=== PATIENT | female | born 1955 | race Caucasian/White ===

== ENCOUNTER → 2017-12-13 13:20 | Outpatient (CLI) | payer BC, SELFPAY | PROVIDERS: PCP Family Medicine; Visit Provider Family Medicine | DX: M81.0 Age-related osteoporosis without current pathological fracture (principal); Z78.0 Asymptomatic menopausal state; Z82.62 Family history of osteoporosis; Z87.891 Personal history of nicotine dependence | CPT/HCPCS: 77080 ==

== ENCOUNTER → 2018-08-04 12:44 | Outpatient (CLI) | payer BC, SELFPAY ==
--- NOTE | 2018-08-04 | DI.RAD.S_ITS ---
PROCEDURE: FL BARIUM SWALLOW INDICATIONS: DYSPHAGIA COMPARISON: None. FINDINGS: Function: Mildly decreased esophageal peristalsis. No elicited gastroesophageal reflux. Morphology: Air-contrast images demonstrate normal mucosal morphology. Single contrast views show no esophageal strictures, extrinsic mass effects, or diverticula. Limited images of the stomach demonstrate normal appearance. IMPRESSION: Mild esophageal dysmotility. Dictated by: Tristan Hale M.D. on 08/04/2018 at 14:30 Approved by: Tristan Hale M.D. on 08/04/2018 at 14:31
== END ==
PROVIDERS: PCP Family Medicine; Visit Provider Otolaryngology
DX: K22.4 Dyskinesia of esophagus (principal); R13.10 Dysphagia, unspecified
CPT/HCPCS: 74220

== ENCOUNTER → 2018-10-13 10:55 | Outpatient (CLI) | payer BC, SELFPAY ==
--- NOTE | 2018-10-13 | DI.MG.S_ITS ---
BILATERAL DIGITAL SCREENING MAMMOGRAM 3D/2D WITH CAD: 10/13/2018 CLINICAL: Routine screening. Comparison is made to exams dated: 06/03/2017 mammogram, 05/20/2016 mammogram, and 05/06/2015 mammogram - [facility]. The tissue of both breasts is heterogeneously dense. This may lower the sensitivity of mammography. Current study was also evaluated with a Computer Aided Detection (CAD) system. There are benign calcifications in the left breast. No significant masses, calcifications, or other findings are seen in either breast. There has been no significant interval change. IMPRESSION: There is no mammographic evidence of malignancy. A 1 year screening mammogram is recommended. This exam was interpreted at Station ID: [id number]. NOTE: For mammograms, a report in lay terms will be sent to the patient. Approximately 15% of breast malignancies will not be visualized mammographically. In the management of a palpable breast mass, a negative mammogram must not discourage biopsy of a clinically suspicious lesion. Electronically Signed By: Josias muse/arjun:10/13/2018 11:45:18 letter sent: Normal Exam ACR BI-RADS Category 2: Benign Finding(s) 3342F
== END ==
PROVIDERS: PCP Family Medicine; Visit Provider Family Medicine
DX: Z12.31 Encounter for screening mammogram for malignant neoplasm of breast (principal)
CPT/HCPCS: 77063; 77067

== ENCOUNTER → 2019-03-09 10:47 | Outpatient (CLI) | payer BC, SELFPAY | PROVIDERS: PCP Family Medicine; Visit Provider Family Medicine | DX: R20.2 Paresthesia of skin (principal); M54.2 Cervicalgia | CPT/HCPCS: 95885; 95886; 95911 ==

== ENCOUNTER → 2019-03-10 15:11 | Outpatient (CLI) | payer BC, SELFPAY ==
--- NOTE | 2019-03-10 | DI.RAD.S_ITS ---
PROCEDURE: XR CERVICAL SPINE 2V OR 3V INDICATIONS: BI HAND TINGLING/ NECK PAIN TECHNIQUE: 3 view(s) of the cervical spine were acquired. COMPARISON: [facility], CERVICAL SPINE 2 OR 3 VIEWS, 04/05/2013, 14:29. FINDINGS: Bones: No fractures or dislocations to the C6 level. The lateral masses of C1 appear intact on the odontoid view. No suspicious bony lesions. Multilevel degenerative endplate sclerosis and spurring. Diffuse facet arthropathy. Straightening of the normal lordotic curvature. Moderate to severe narrowing of the C4-C5 disc space. Moderate narrowing of the C5-C6 disc space. Mild levocurvature. Soft tissues: No prevertebral soft tissue swelling. IMPRESSION: Midcervical spondylosis and diffuse facet arthropathy, progressed since 04/05/13. Dictated by: Tristan Hale M.D. on 03/10/2019 at 16:47 Approved by: Tristan Hale M.D. on 03/10/2019 at 16:49
== END ==
PROVIDERS: PCP Family Medicine; Visit Provider Family Medicine
DX: R20.2 Paresthesia of skin (principal); M54.2 Cervicalgia; M47.812 Spondylosis without myelopathy or radiculopathy, cervical region
CPT/HCPCS: 72040

== ENCOUNTER → 2019-11-04 10:43 | Outpatient (CLI) | payer BC, SELFPAY ==
--- NOTE | 2019-11-04 | DI.MG.S_ITS ---
BILATERAL DIGITAL SCREENING MAMMOGRAM 3D/2D WITH CAD: 11/04/2019 CLINICAL: Routine screening. Comparison is made to exams dated: 10/13/2018 mammogram, 06/03/2017 mammogram, and 05/20/2016 mammogram - [facility]. The tissue of both breasts is heterogeneously dense. This may lower the sensitivity of mammography. Current study was also evaluated with a Computer Aided Detection (CAD) system. There are benign calcifications in the left breast. No significant masses, calcifications, or other findings are seen in either breast. There has been no significant interval change. IMPRESSION: There is no mammographic evidence of malignancy. A 1 year screening mammogram is recommended. This exam was interpreted at Station ID: [id number]. NOTE: For mammograms, a report in lay terms will be sent to the patient. Approximately 15% of breast malignancies will not be visualized mammographically. In the management of a palpable breast mass, a negative mammogram must not discourage biopsy of a clinically suspicious lesion. Electronically Signed By: Josias muse/arjun:11/06/2019 07:37:12 letter sent: Normal Exam ACR BI-RADS Category 2: Benign Finding(s) 3342F
== END ==
PROVIDERS: PCP Family Medicine; Referring Provider Family Medicine; Visit Provider Family Medicine
DX: Z12.31 Encounter for screening mammogram for malignant neoplasm of breast (principal)
CPT/HCPCS: 77063; 77067

== ENCOUNTER → 2019-12-06 13:08 | Outpatient (CLI) | payer BC, SELFPAY | PROVIDERS: PCP Family Medicine; Referring Provider Family Medicine; Visit Provider Family Medicine | DX: M81.0 Age-related osteoporosis without current pathological fracture (principal); Z78.0 Asymptomatic menopausal state; Z82.62 Family history of osteoporosis; Z87.891 Personal history of nicotine dependence | CPT/HCPCS: 77080 ==

== ENCOUNTER → 2019-12-25 10:22 | Outpatient (CLI) | payer BC, SELFPAY ==
[2019-12-26 07:23] LABS: COVID19 Sendout Not Detected (Not Detect)
== END ==
PROVIDERS: PCP Family Medicine; Visit Provider Physician Assistant
DX: Z11.59 Encounter for screening for other viral diseases (principal)
CPT/HCPCS: 87635

== ENCOUNTER → 2019-12-28 14:51 | Outpatient (CLI) | payer BC, SELFPAY ==
--- NOTE | 2020-01-05 08:37 | PM.PFT.1 ---
Pulmonary Function Test Referral & Results Date Patient Seen: 12/28/19 Requesting provider: Dina Berrios Indication: Dyspnea upon exertion Results: The spirometry demonstrates an FVC of 3.20 L which is 104% of predicted. The FEV1 was measured at 2.54 L which is 108% of predicted. The FEV1/FVC ratio was 79 which is 102% of predicted. Following the administration of bronchodilator there was no notable change. Lung volumes show an SVC of 3.35 L which is 116% of predicted. The diffusing capacity was measured at 18.9 for which is 82% of predicted. The maximum voluntary ventilation was slightly reduced Interpretation: This study demonstrates probably normal pulmonary function. Minimal reduction in diffusing capacity and maximum voluntary ventilation were noted.
== END ==
PROVIDERS: PCP Family Medicine; Referring Provider Family Medicine; Visit Provider Family Medicine
DX: R06.09 Other forms of dyspnea (principal); Z87.891 Personal history of nicotine dependence
CPT/HCPCS: 94060; 94726; 94729

== ENCOUNTER → 2020-01-30 07:00 | Outpatient (CLI) | payer BC, SELFPAY ==
--- NOTE | 2020-01-30 07:14 | DI.ECHO.S_ITS ---
Echocardiogram Report + + :Name: RONAN JENKINS Study Date: 01/30/2020 Height: 63 in : :[facility] Weight: 138 lb : : Gender: Female BSA: 1.6 m2 : :: 1955 Age: 64 yrs BP: 142/71 mmHg: :Reason For Study: CARDIAC MURMUR : :Ordering Physician: Dr. Arroyo : :Yash Performed By: Doretha Mishra : :Referring: RONAN NEW : + + Interpretation Summary Sinus bradycardia. Heart rate is 45-55 bpm. Normal LV size and walll thickness; normal wall motion and LV systolic function. EF is 60-65%. Normal chamber sizes. No significatn valvular abnormalities. There is evidence of patent foramen ovale based on color flow Doppler. No prior study available for comparison. Procedure: A two-dimensional transthoracic echocardiogram with color flow and Doppler was performed. The study quality was technically adequate. There is no prior echocardiogram noted for this patient. The patient was in sinus bradycardia with heart rates between 45-55 bpm during the exam. Left Ventricle: The left ventricle is normal in size and wall thickness. The ejection fraction is estimated to be 60-65%. Diastolic parameters suggest probable normal left ventricular diastolic function and normal filling pressures. Right Ventricle: The right ventricle is normal in size and function. Atria: The left atrial size is normal. Right atrial size is normal. A patent foramen ovale is suspected. Doppler evidence suggests a left to right interatrial shunt. Mitral Valve: The mitral valve is normal in structure and function. There is trace mitral regurgitation. Aortic Valve: The aortic valve is trileaflet. The aortic valve opens well. There is no aortic valve stenosis. No aortic regurgitation is present. Tricuspid Valve: The tricuspid valve is normal in structure and function. Pulmonary artery pressures cannot be estimated because of the lack of a measurable TR jet velocity but the IVC suggests a CVP of around 8 mmHg. Pulmonic Valve: The pulmonic valve leaflets are thin and pliable; valve motion is normal. There is mild pulmonic regurgitation. Great Vessels: The aortic root is normal size. The dimensions of the ascending aorta are normal. The IVC is dilated (diameter is greater than 2.1 cm) yet it collapses greater than 50% with a sniff. This suggests a right atrial pressure of 8 mm Hg. Pericardium/ Pleura There is no pericardial effusion. There is no pleural effusion. MMode/2D Measurements & Calculations LVIDd: 4.5 cm LVOT diam: 1.9 cm LVIDs: 2.9 cm Ao root diam: 2.7 cm FS: 35.7 % asc Aorta Diam: 2.5 cm EPSS: 0.56 cm Ao Arch Diam (Prox Trans): 2.4 cm IVSd: 0.64 cm LVPWd: 0.77 cm LV machado. diameter/BSA (cm/m^2): 2.7 LV sys. diameter/BSA (cm/m^2): 1.7 LA A2 area: 14.6 cm2 RA long axis: 4.4 cm LA A4 area: 15.5 cm2 RA area: 13.8 cm2 LA length (vol): 4.6 cm RA vol: 36.3 ml LA vol: 41.4 ml RA : 22.0 ml/m2 LA vol index: 25.1 ml/m2 IVC diam: 2.2 cm RVD1 (basal): 3.6 cm TAPSE: 2.3 cm Doppler Measurements & Calculations Ao V2 max: 125.6 cm/sec MV E max deny: 85.8 cm/sec Ao V2 mean: 82.0 cm/sec MV A max deny: 54.5 cm/sec Ao max P.3 mmHg MV E/A: 1.6 Ao mean P.1 mmHg Med Peak E' Deyn: 7.8 cm/sec Ao V2 VTI: 29.6 cm E/E' med: 11.0 Lat Peak E' Deny: 8.4 cm/sec E/E' lat: 10.2 E/e' average: 10.6 MV dec time: 0.17 sec Electronically signed by: Lata Neil M.D. on Reading Physician:01/31/2020 01:18 AM
== END ==
PROVIDERS: PCP Family Medicine; Referring Provider Family Medicine; Visit Provider Family Medicine
DX: I37.1 Nonrheumatic pulmonary valve insufficiency (principal); R01.1 Cardiac murmur, unspecified; R06.09 Other forms of dyspnea
CPT/HCPCS: 93306

== ENCOUNTER → 2020-02-14 12:00 | Outpatient (CLI) | payer BC, SELFPAY ==
--- NOTE | 2020-03-15 16:49 | PM.CARDMON.1 ---
Health Informatics Advisor Report Referral & Results Date Patient Seen: 02/14/20 Requesting provider: Dina Berrios Indication: Palpitations Duration of monitoring (days): 14 Diary information: There were 16 patient triggered events and patient had 10 diary entries All 16 of these events were associated variably (within 45 seconds) with sinus rhythm, ventricular bigeminy, PVCs, and PACs. Data: Patient's minimum heart rate was 37 beats per minute at 06:30 on 02/19/2020 Maximum heart rate was 140 beats per minute at 13:05 on 02/27/2020 Less than 1% of identified beats rather ventricular supraventricular ectopic in origin. Patient did have up to a 1 minutes 42nd run of ventricular bigeminy There were 3 runs of SVT/atrial tachycardia with the fastest being 5 beats at a rate of 103 beats per minute which suggests strongly atrial tachycardia rather than true SVT. This was also the longest run No other significant dysrhythmias identified Impression: Patient with multiple minor dysrhythmias as above that potentially could be associated with sense of palpitations including PACs and PVCs. No more serious dysrhythmia identified on this study
== END ==
PROVIDERS: Family Provider Family Medicine; PCP Family Medicine; Referring Provider Family Medicine; Visit Provider Family Medicine
DX: R00.2 Palpitations (principal)
CPT/HCPCS: 0296T; 0298T

== ENCOUNTER → 2020-07-08 10:09 | Outpatient (CLI) | payer MEDICARE, BC, SELFPAY ==
--- NOTE | 2020-07-08 | DI.RAD.S_ITS ---
PROCEDURE: XR KNEE LT 3V INDICATIONS: LEFT KNEE PAIN TECHNIQUE: 3 views of the knee were acquired. COMPARISON: [facility], , KNEE 3V LEFT, 11/08/2014, 11:07. FINDINGS: Bones: No fractures or dislocations. No suspicious bony lesions. Mild narrowing of the lateral facet of the patellofemoral joint Soft tissues: No joint effusion. No suspicious soft tissue calcifications. IMPRESSION: Mild degenerative osteoarthritic change at the lateral facet of the patellofemoral joint. No trauma found. Dictated by: Chuck Lopez M.D. on 07/08/2020 at 10:47 Approved by: Chuck Lopez M.D. on 07/08/2020 at 10:48
== END ==
PROVIDERS: Family Provider Family Medicine; PCP Family Medicine; Referring Provider Family Medicine; Visit Provider Family Medicine
DX: M25.562 Pain in left knee (principal)
CPT/HCPCS: 73562

== ENCOUNTER → 2020-11-05 | Outpatient (CLI) | payer MEDICARE, BC, SELFPAY ==
--- NOTE | 2020-11-05 | DI.MG.S_ITS ---
BILATERAL DIGITAL SCREENING MAMMOGRAM 3D/2D WITH CAD: 11/05/2020 CLINICAL: Routine screening. Comparison is made to exams dated: 11/04/2019 mammogram, 10/13/2018 mammogram, and 06/03/2017 mammogram - [facility]. The tissue of both breasts is heterogeneously dense. This may lower the sensitivity of mammography. Current study was also evaluated with a Computer Aided Detection (CAD) system. There are benign calcifications in the left breast. No significant masses, calcifications, or other findings are seen in either breast. There has been no significant interval change. IMPRESSION: BENIGN There is no mammographic evidence of malignancy. A 1 year screening mammogram is recommended. This exam was interpreted at Station ID: [id number]. NOTE: For mammograms, a report in lay terms will be sent to the patient. Approximately 15% of breast malignancies will not be visualized mammographically. In the management of a palpable breast mass, a negative mammogram must not discourage biopsy of a clinically suspicious lesion. Electronically Signed By: Vipin chacon/arjun:11/05/2020 15:13:43 letter sent: Normal Exam ACR BI-RADS Category 2: Benign Finding(s) 3342F
== END ==
LOC: MAMMO 14:02
PROVIDERS: Family Provider Family Medicine; PCP Family Medicine; Referring Provider Family Medicine; Visit Provider Family Medicine
DX: Z12.31 Encounter for screening mammogram for malignant neoplasm of breast (principal)
CPT/HCPCS: 77063; 77067

== ENCOUNTER → 2020-12-30 13:15 | Outpatient (CLI) | payer MEDICARE, BC, SELFPAY ==
[2020-12-30 15:31] LABS: COVID19 -Nasal RAPID Negative (Negative)
== END ==
PROVIDERS: Family Provider Family Medicine; PCP Family Medicine; Referring Provider Physician Assistant; Visit Provider Physician Assistant
DX: J02.9 Acute pharyngitis, unspecified (principal); Z20.822 Contact with and (suspected) exposure to COVID-19
CPT/HCPCS: 87635

== ENCOUNTER → 2021-02-04 11:06 | Outpatient (CLI) | payer MEDICARE, BC, SELFPAY ==
--- NOTE | 2021-02-04 11:08 | DI.RAD.S_ITS ---
PROCEDURE: XR LUMBAR SPINE MIN 4V INDICATIONS: Low back pain left lower extremity pain TECHNIQUE: 5 views of the lumbar spine were acquired, including bilateral oblique views. COMPARISON: [facility], , L-SPINE 2-3 VIEWS, 08/08/2015, 12:33. FINDINGS: Bones: 5 nonrib-bearing vertebrae are present. There is normal bony alignment. No vertebral body compression fractures. No suspicious bony lesions. Disc space narrowing and degenerative endplate changes noted at L2-3 and L5-S1. Sclerotic facet joints present in the lower lumbar spine. Soft tissues: Overlying bowel gas pattern is normal. No suspicious soft tissue calcifications. Oblique images: No pars defects. IMPRESSION: Multilevel degenerative disc disease and arthropathy without malalignment Approved by: Ervin Shell M.D. on 02/04/2021 at 10:35
== END ==
PROVIDERS: Family Provider Family Medicine; PCP Family Medicine; Referring Provider Physical Medicine & Rehabilitation; Visit Provider Physical Medicine & Rehabilitation
DX: M54.16 Radiculopathy, lumbar region (principal); M51.36 Other intervertebral disc degeneration, lumbar region; M47.816 Spondylosis without myelopathy or radiculopathy, lumbar region
CPT/HCPCS: 72110

== ENCOUNTER → 2021-02-14 13:35 | Outpatient (CLI) | payer MEDICARE, BC, SELFPAY ==
--- NOTE | 2021-02-14 13:37 | DI.MRI.S_ITS ---
PROCEDURE: MR LUMBAR SPINE WO CON INDICATIONS: Facet arthropathy with left lower extremity radicular features TECHNIQUE: Noncontrast sagittal T1 spin echo and T2 fast echo, sagittal STIR, axial T1 and T2 fast spin echo through the lumbar spine. In cases with scoliosis, additional coronal T2 fast spin echo may be performed. COMPARISON: [facility], CR, XR LUMBAR SPINE MIN 4V, 02/04/2021, 11:04. FINDINGS: Image quality: Excellent. Alignment and Curvature: There is normal bony alignment. Bone Marrow: Marrow is of normal overall signal. Mild reactive endplate changes are present at L2-3, L3-4, minimal throughout the remainder of the lumbar spine. Schmorl's nodes are present most prominently along the endplates of L2 L3 and L5. No acute vertebral body compression fractures. Spinal Cord: Conus medullaris terminates at the L2 level. Visualized cord demonstrates normal signal and size. Paraspinous Soft Tissues: No paravertebral masses. Discs: Moderate to severe desiccation is present throughout the lumbar spine most severe at L2-3, L3-4 and L5-S1. L1-L2: Mild disc bulge with minimal canal narrowing. No foraminal narrowing. Facet and ligamentum flavum hypertrophy as well as epidural lipomatosis are present. L2-L3: Mild disc bulge with [id number] spinal stenosis. No foraminal narrowing. Facet and ligamentum flavum hypertrophy are present. L3-L4: Mild disc bulge with posterior central protrusion. Moderate spinal stenosis is present. Mild left foraminal narrowing with facet and ligamentum flavum hypertrophy as well as epidural lipomatosis. L4-L5: Mild disc bulge with minimal canal narrowing. Moderate left foraminal narrowing with facet and ligamentum flavum hypertrophy as well as epidural lipomatosis. L5-S1: Mild disc bulge without spinal stenosis. Severe right and moderate left foraminal narrowing. Nerve root flattening is noted on the right exiting L5 nerve roots. Facet hypertrophy is present. IMPRESSION: 1. Moderate spinal stenosis is present at L3-4 secondary to disc bulge as well as facet/ligamentum flavum arthropathy and epidural lipomatosis. 2. Multilevel foraminal narrowing most severe at L5-S1 secondary to facet arthropathy. Dictated by: Mariaa Cain M.D. on 02/14/2021 at 15:52 Approved by: Mariaa Cain M.D. on 02/14/2021 at 15:57
--- NOTE | 2021-02-14 13:53 | DI.MRI.S_ITS ---
PROCEDURE: MR CERVICAL SPINE WO CON INDICATIONS: Facet arthropathy TECHNIQUE: Noncontrast sagittal T1 spin echo and T2 fast spin echo, sagittal STIR, foraminal oblique sagittal T2 fast spin echo, and axial gradient echo or T2 fast spin echo through the cervical spine. COMPARISON: [facility], MR, MR LUMBAR SPINE WO CON, 02/14/2021, 14:11. [facility], CR, CERVICAL SPINE 2 OR 3 VIEWS, 04/05/2013, 14:29. FINDINGS: Image quality: Excellent. Alignment and Curvature: There is overall straightening of the normal cervical lordosis. Minimal retrolisthesis is seen at the C4-C5 level. Bone Marrow: Marrow demonstrates normal overall signal. Spinal Cord: Visualized spinal cord has normal size and signal. No cerebellar tonsillar herniation. Paraspinous Soft Tissues: No paravertebral masses. Prevertebral soft tissues are normal in thickness. C2-C3: The disc height is well-preserved. Loss of disc signal is seen at this level. A mild degree of generalized disc osteophyte complex is seen. There is pjid-vk-[id number] right-sided and moderate left-sided facet hypertrophy seen. There is moderate left-sided and mild right-sided neural foraminal narrowing seen. No significant central canal narrowing is seen. C3-C4: The disc height and disc signal are relatively well preserved. Mild to moderate disc osteophyte complex is seen. Moderate facet joint hypertrophy is seen. There is moderate to severe right-sided and at least moderate left-sided neural foraminal narrowing seen. Mild central canal narrowing is seen. C4-C5: At least moderate loss of disc height and disc signal can be seen. At least moderate disc osteophyte complex is seen. Uncovertebral joint hypertrophy is seen at this level. Moderate facet joint hypertrophy is seen. There is moderate to severe bilateral neural foraminal narrowing seen at this level. Moderate central canal narrowing is seen. There is associated mass effect upon the ventral spinal cord. C5-C6: Moderate loss of disc height is seen. Loss of disc signal is seen. At least moderate disc osteophyte complex is seen. Moderate facet joint hypertrophy is seen. Moderate to severe bilateral neural foraminal narrowing can be seen. Mild to moderate central canal narrowing is seen at this level. C6-C7: The disc height and disc signal are relatively well preserved. Mild to moderate disc osteophyte complex is seen. There is moderate right-sided and mild left-sided neural foraminal narrowing. Mild to moderate bilateral neural foraminal narrowing can be seen. Minimal central canal narrowing is seen. C7-T1: No significant abnormality is seen. IMPRESSION: Multiple levels of cervical spine degenerative change are seen, which are overall worst at the C4-C5 level. Dictated by: Yung Xavier M.D. on 02/14/2021 at 15:00 Approved by: Yung Xavier M.D. on 02/14/2021 at 15:04
== END ==
PROVIDERS: Family Provider Family Medicine; PCP Family Medicine; Referring Provider Physical Medicine & Rehabilitation; Visit Provider Physical Medicine & Rehabilitation
DX: M47.812 Spondylosis without myelopathy or radiculopathy, cervical region (principal); M47.26 Other spondylosis with radiculopathy, lumbar region; M47.27 Other spondylosis with radiculopathy, lumbosacral region; M48.061 Spinal stenosis, lumbar region without neurogenic claudication; M48.07 Spinal stenosis, lumbosacral region
CPT/HCPCS: 72141; 72148

== ENCOUNTER → 2021-05-23 10:05 | Outpatient (CLI) | payer MEDICARE, BC, SELFPAY | PROVIDERS: Family Provider Family Medicine; PCP Family Medicine; Referring Provider Family Medicine; Visit Provider Family Medicine | DX: M81.0 Age-related osteoporosis without current pathological fracture (principal); Z78.0 Asymptomatic menopausal state; Z82.62 Family history of osteoporosis; Z87.891 Personal history of nicotine dependence | CPT/HCPCS: 77080 ==

== ENCOUNTER 2021-06-19 12:17 | Outpatient (CLI) | payer MEDICARE, BC, SELFPAY | END 2021-06-24 09:11 | disposition home or self-care (01) | LOC: PHYS 12:18 | PROVIDERS: Family Provider Family Medicine; PCP Family Medicine; Referring Provider Family Medicine; Visit Provider Family Medicine | DX: M54.16 Radiculopathy, lumbar region (principal) | CPT/HCPCS: 95886; 95910 ==

== ENCOUNTER → 2021-07-28 13:08 | Outpatient (CLI) | payer MEDICARE, BC, SELFPAY ==
[2021-07-28 15:40] LABS: COVID19 -Nasal RAPID Negative (Negative)
== END ==
PROVIDERS: Family Provider Family Medicine; PCP Family Medicine; Visit Provider Physical Medicine & Rehabilitation
DX: Z20.822 Contact with and (suspected) exposure to COVID-19 (principal)
CPT/HCPCS: 87635; C9803

== ENCOUNTER 2021-07-30 09:34 | Day surgery (SDC) | payer MEDICARE, BC, SELFPAY ==
--- NOTE | 2021-07-28 15:26 | PM.PREOP ---
Pre-operative Note COVID-19 COVID-19 status: Negative Criteria for continued procedure: Expected advancement of disease process, Possibility delay results in more complex future surgery or treatment, Increased loss of function, Delay expected to result in less-positive ultimate med/surg outcome and Non-surgical alternatives not available or appropriate per current SOC Interval Note History & Physical reviewed/Exam performed by Physician: Yes Changes to H&P: No
--- NOTE | 2021-07-30 07:53 | PM.OP.1 ---
Operative Date/Time/Diagnoses Date of procedure: 07/30/21 Time of procedure: 10:45 Procedure & Clinicians Procedure: Date of service: 07/30/2021 Preoperative diagnoses: 1. 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 2. Elective lower lid blepharoplasty 3. Significant sensitivity to lidocaine must be used diluted. 4. Depression 5. Back disorder 6. Osteoporosis Postoperative diagnoses: 1. Bilateral upper lid dermatochalasis for functional visual loss with preoperative approval from insurance. 2. Cosmetic lower lid blepharoplasty elective. Procedure: Bilateral upper blepharoplasty functional Cosmetic lower lid blepharoplasty Surgeon: Nicole Rose MD Complications: none Specimen: None Blood loss: Less than 3 mL Anesthesia: Local infiltration with monitored standby. Indications: Bilateral upper lids obstructing superior vision and causing her difficulty driving as she feels the need to lift her eyelids. Preoperative external photographs taken and loss of vision to within 2 mm of marginal light reflex. Functional surgery. Preoperative approval obtained. To lessen anesthetic risk she elects lower lid cosmetic blepharoplasty at the same time. She is noted to be sensitive to lidocaine and bupivicane in different strengths will be substituted.. Procedure: In the preoperative holding area the amount skin and subcutaneous tissue to be removed was marked with indelible ink. The contours were carefully checked for symmetry and planned procedure discussed with the patient. The patient was taken to the operating room. IV sedation was given. Proparacaine drops were placed in both eyes for comfort. Local infiltration of anesthetic 2.5 cc into each upper lid, consisting of 1% xylocaine with epinephrine, normal saline and 1 cc hyluronidase was placed. This was then supplemented with full strength 2% xylocaine with epinephrine, 0.5% bupivacaine, and 1 cc hyalurondase. The face was prepped in an open manner. Attention was placed to the right upper lid. Using the previous cain a number 15. Bard-Donaldo blade was used to incise a skin muscle flap. The flap was lifted and removed. Cautery was applied as needed. Contouring of the muscle belly was also performed. Exploration of the nasal and preoperneurotic fat pads were performed removal and contouring with hemostat and scissors as well as cautery were performed. The lid was then closed with running and interrupted 6 0 Vicryl sutures. Same procedure was repeated for the left upper lid. The Betadine was removed. Maxitrol ointment was placed to suture line. She returned to recovery room in stable condition. Instructions for postoperative cold packs were reviewed. Attention was then placed to the lower lid. Further infiltration with local anesthetic was performed. To reduce exposure a right lateral canthotomy was performed with dissection to the periosteum. The inferior canthal tendon was lysed. A horizontal tarsal strip was performed with remove the anterior and posterior lamella without removal of tissue. Cautery was applied as needed. A double-armed 4-0 Mersilene suture was placed through the tarsal strip and left in position. A sub ciliary an incision was made under the lower lid margin and dissected to the lower orbital rim exposing the orbital septum. Buttonholes were made to expose the nasal medial and lateral fat pad and remove these and cauterized as needed. Attention was placed to the lateral canthus. The Mersilene suture was placed through the periosteum at the desired height and multiple throws made. The knot was buried. The lateral canthal angle was recreated with canthoplasty. Interrupted 6 0 Vicryl sutures were used to recreate deep and skin closure of the lateral canthus. The lower lid incision was then closed with a running 6 0 Vicryl suture. Maxitrol ointment was placed along the suture line and she returned to the recovery room in good condition. Minimal bleeding occurred during the procedure. Nicole Rose MD. Same procedure as scheduled: Yes
--- NOTE | 2021-07-30 08:15 | P.HP_ITS ---
History of Present Illness History of Present Illness Chief complaint: BILATERAL UPPER BLEPHS Narrative: Patient is a 66-year-old female who has decreased vision due to overhanging upper eyelids which are in her field of view. Preoperative photographs demonstrated loss of vision and she desired functional repair. This was approved by insurance. At the same time she desires cosmetic lower lid blepharoplasty to reduce her read turned to the operating room for additional procedures. She does have history of sent significant sensitivity to lidocaine due to reactions in the dental office. She has tolerated diluted strength in the past. Her other allergies are sulfa and adhesives. Her past medical histo ry is significant for depression osteoporosis migraines and a back disorder. She is a nonsmoker preoperative blood pressure is 167/88 with a pulse of 93 in her left arm lungs are clear heart has regular rhythm. Exam shows 2020 vision in both eyes. She has 4+ dermatochalasis bilaterally without marginal light reflex of 1 mm bilaterally she is trace nuclear sclerotic cataracts and optic nerve with cup to disc 0.4 without retinal disease. She desires surgical correction of upper lid by functional blepharoplasty and lower lid by cosmetic blepharoplasty. She is stable to proceed Patient History Medical History Cervical radiculopathy Facet arthropathy, cervical Facet arthropathy, lumbar Lumbar radiculopathy Meds Home Medications and Allergies Home Medications Medication Instructions Recorded Confirmed Type acetaminophen 650 mg 650 mg PO Q12H 02/05/21 02/05/21 History tablet,extended release (Tylenol 8 Hour) buspirone 5 mg tablet 5 mg PO BID 02/05/21 02/05/21 History fexofenadine 180 mg tablet 180 mg PO DAILY 02/05/21 02/05/21 History fluoxetine 20 mg capsule 20 mg PO DAILY 02/05/21 02/05/21 History triamterene 75 1 tab PO DAILY 02/05/21 02/05/21 History mg-hydrochlorothiazide 50 mg tablet Allergies Allergy/AdvReac Type Severity Reaction Status Date / Time adhesive Allergy Intermediate Rash Verified 03/06/21 13:58 green pepper Allergy Intermediate GI UPSET Verified 03/06/21 13:58 hydrocodone Allergy Intermediate Rash, FEVER Verified 03/06/21 13:58 lidocaine Allergy Intermediate SWELLING Verified 03/06/21 13:58 mushroom Allergy Intermediate GI UPSET Verified 03/06/21 13:58 Sulfa (Sulfonamide Allergy Intermediate SWELLING, Verified 03/06/21 13:58 Antibiotics) ITCHING, [SULFA (SULFONAMIDE RASH, FEVER ANTIBIOTICS)] Assessment & Plan Time Spent With Patient Critical Care time: I spent a total of [] minutes of critical care time on this patient's care today; this time is exclusive of procedural time.
[2021-07-30 10:20] VITALS: BP 127/70; PULSE 65; RESP 12; TEMP 36.6; O2SAT 99
[2021-07-30 10:22] VITALS: BP 127/70; PULSE 65; RESP 15; TEMP 36.6; O2SAT 99
--- NOTE | 2021-07-30 10:36 | SUR.OPER ---
Supine on eye stretcher, head on extension cradle secured with tape. Arms tucked at sides with blanket. Pillow under knees.
[2021-07-30] MEDS: LACTATED RINGERS 1,000 ML 42 ML IV (11:23)
[2021-07-30] MEDS: BUPIVACAINE 0.5% (PF) 5 ML, LIDOCAINE 1% W/EPI 5 ML, HYALURONIDASE 150 UNIT INJ ×2 (12:05→12:07)
[2021-07-30] MEDS: NEOMYCIN/POLY/DEX OPHTH OINT 1 APPLIC EYE-BOTH (12:10)
[2021-07-30 14:49] VITALS: BP 118/68; PULSE 61; RESP 16; TEMP 36.6; O2SAT 99
[2021-07-30 15:00] VITALS: BP 121/64; PULSE 65; RESP 16; TEMP 36.7; O2SAT 99
== END 2021-07-30 15:07 | disposition home or self-care (01) ==
PROVIDERS: Family Provider Family Medicine; PCP Family Medicine; Referring Provider Ophthalmology; Visit Provider Ophthalmology
PROC: (CPT 15821; principal; 2021-07-30 10:45)
PROC: (CPT 15821; 2021-07-30 10:45)
DX: H02.834 Dermatochalasis of left upper eyelid (principal); H02.831 Dermatochalasis of right upper eyelid; H02.832 Dermatochalasis of right lower eyelid; H02.835 Dermatochalasis of left lower eyelid; I10 Essential (primary) hypertension
CPT/HCPCS: 15821; 15823; J2704; J3010; J3470

== ENCOUNTER 2021-07-30 09:38 | Day surgery (SDC) | payer SELFPAY | END 2021-07-30 09:40 | disposition home or self-care (01) | PROVIDERS: Family Provider Family Medicine; PCP Family Medicine; Referring Provider Ophthalmology; Visit Provider Ophthalmology ==

== ENCOUNTER → 2021-11-06 12:28 | Outpatient (CLI) | payer MEDICARE, BC, SELFPAY ==
--- NOTE | 2021-11-06 | DI.MG.S_ITS ---
BILATERAL DIGITAL SCREENING MAMMOGRAM 3D/2D WITH CAD: 11/06/2021 CLINICAL: Routine screening. Comparison is made to exams dated: 11/05/2020 mammogram, 11/04/2019 mammogram, and 10/13/2018 mammogram - [facility]. The tissue of both breasts is heterogeneously dense. This may lower the sensitivity of mammography. Current study was also evaluated with a Computer Aided Detection (CAD) system. There are benign calcifications in the left breast. No significant masses, calcifications, or other findings are seen in either breast. There has been no significant interval change. IMPRESSION: BENIGN There is no mammographic evidence of malignancy. A 1 year screening mammogram is recommended. This exam was interpreted at Station ID: [id number]. NOTE: For mammograms, a report in lay terms will be sent to the patient. Approximately 15% of breast malignancies will not be visualized mammographically. In the management of a palpable breast mass, a negative mammogram must not discourage biopsy of a clinically suspicious lesion. Electronically Signed By: Vipin chacon/arjun:11/06/2021 14:42:30 letter sent: Normal Exam ACR BI-RADS Category 2: Benign Finding(s) [id number]
== END ==
PROVIDERS: Family Provider Family Medicine; PCP Family Medicine; Referring Provider Family Medicine; Visit Provider Family Medicine
DX: Z12.31 Encounter for screening mammogram for malignant neoplasm of breast (principal)
CPT/HCPCS: 77063; 77067

== ENCOUNTER → 2022-04-30 09:00 | Outpatient (CLI) | payer MEDICARE, BC, SELFPAY ==
--- NOTE | 2022-04-30 09:04 | DI.RAD.S_ITS ---
PROCEDURE: XR CERVICAL SPINE 4V OR 5V INDICATIONS: NECK PAIN TECHNIQUE: 5 views of the cervical spine acquired. COMPARISON: [facility], MR, MR CERVICAL SPINE WO CON, 02/14/2021, 13:49. FINDINGS: Bones: No fractures or dislocations to the C7 level. Straightening of the normal cervical lordosis, a finding which can be seen in the setting of muscle strain and/or spasm. Moderate-severe Multilevel degenerative changes of the cervical spine, most severe at C4-C5. Multilevel bony foraminal stenoses present bilaterally. Soft tissues: No prevertebral soft tissue swelling. IMPRESSION: Multilevel degenerative changes of the cervical spine. Dictated by: Vipin Landeros M.D. on 04/30/2022 at 11:02 Approved by: Vipin Landeros M.D. on 04/30/2022 at 11:05
--- NOTE | 2022-04-30 09:04 | DI.RAD.S_ITS ---
PROCEDURE: XR SHOULDER RT MIN 2V INDICATIONS: RIGHT SHOULDER PAIN TECHNIQUE: 3 views of the shoulder were acquired. COMPARISON: None. FINDINGS: Bones: No fractures or dislocations. No suspicious bony lesions. Mild acromioclavicular and glenohumeral joint degeneration. Visualized ribs appear intact. Soft tissues: No suspicious soft tissue calcifications. IMPRESSION: Mild degenerative joint disease. Dictated by: Titi Zarco M.D. on 04/30/2022 at 9:50 Approved by: Titi Zarco M.D. on 04/30/2022 at 9:51
--- NOTE | 2022-04-30 09:04 | DI.RAD.S_ITS ---
PROCEDURE: XR SHOULDER LT MIN 2V INDICATIONS: LEFT SHOULDER PAIN TECHNIQUE: 3 views of the shoulder were acquired. COMPARISON: None. FINDINGS: Bones: No fractures or dislocations. No suspicious bony lesions. Mild acromioclavicular and glenohumeral joint degeneration. Visualized ribs appear intact. Soft tissues: No suspicious soft tissue calcifications. IMPRESSION: Mild degenerative joint disease. Dictated by: Titi Zarco M.D. on 04/30/2022 at 9:51 Approved by: Titi Zarco M.D. on 04/30/2022 at 9:51
== END ==
PROVIDERS: Family Provider Family Medicine; PCP Family Medicine; Referring Provider Physical Medicine & Rehabilitation; Visit Provider Physical Medicine & Rehabilitation
DX: M19.012 Primary osteoarthritis, left shoulder (principal); M19.011 Primary osteoarthritis, right shoulder; M47.22 Other spondylosis with radiculopathy, cervical region; M25.512 Pain in left shoulder; M25.511 Pain in right shoulder
CPT/HCPCS: 72050; 73030

== ENCOUNTER → 2022-06-08 10:18 | Outpatient (CLI) | payer MEDICARE, BC, SELFPAY | PROVIDERS: Family Provider Family Medicine; PCP Family Medicine; Referring Provider Family Medicine; Visit Provider Family Medicine | DX: M81.0 Age-related osteoporosis without current pathological fracture (principal); Z78.0 Asymptomatic menopausal state; Z79.83 Long term (current) use of bisphosphonates | CPT/HCPCS: 77080 ==

== ENCOUNTER 2022-09-24 09:17 | Outpatient (CLI) | payer OTHER, MEDICARE, BC, SELFPAY ==
[2022-09-24] VITALS (10 sets, daily range): BP systolic 98–123; BP diastolic 51–64; PULSE 56–70; RESP 14–20; TEMP 36.6; O2SAT 96–100
--- NOTE | 2022-09-24 09:21 | DI.RAD.S_ITS ---
PROCEDURE: PAIN C/T INTERLAMINAR INJECT INDICATIONS: SPINAL STENOSIS COMPARISON: None. FINDINGS: Fluoroscopic spot filming was performed to verify placement of spinal needles at the bilateral C6-7 level(s), as labeled on the films. Appropriate location(s) of the needle tip(s) was confirmed by injection of iodinated contrast. IMPRESSION: Fluoroscopic support for interlaminar injections of the cervical spine. Please see separate procedure note for further details. Dictated by: Josias Murcia M.D. on 09/24/2022 at 13:32 Approved by: Josias Murcia M.D. on 09/24/2022 at 13:33
[2022-09-24] MEDS: MIDAZOLAM 2 MG/2 ML VIAL 3 MG IV (10:26)
[2022-09-24] MEDS: BUPIVACAINE 0.25% (PF) VIAL 2 ML INJ (10:27)
[2022-09-24] MEDS: IOPAMIDOL 15 ML VIAL 3 ML INJ (10:28)
[2022-09-24] MEDS: DEXAMETHASONE 10 MG/ML VIAL 30 MG INJ (10:28)
[2022-09-24] MEDS: MIDAZOLAM 5 MG/ML VIAL 1 MG IV (10:31)
--- NOTE | 2022-09-24 10:45 | P.PCN_ITS ---
Date/Time/Diagnoses Date of procedure: 09/24/22 Time of procedure: 10:45 Pre-procedure diagnosis: 1. CERVICAL STENOSIS, 2. CERVICAL HNP WITH UPPER EXTREMITY RADICULAR FEATURES Post-procedure diagnosis: same Procedure Notes Procedure: 1. FLUORSCOPICALLY GUIDED CONTRAST CONTROLLED INTERLAMINAR EPIDURAL STEROID INJECTION - C6/7 TL BRYAN Indications: Dina is referred by Dr. Berrios for treatment of Cervical HNP with Upper Extremity Paresthesias. Physician: Marc Flores Total Fluoroscopy time (seconds): 37 Total sedation minutes: 19 Complications: none Procedure in detail & Post-procedure care: FINDINGS Cervical Stenosis due to disc deterioration and nerve root irritation and nerve root irritation DESCRIPTION OF PROCEDURE Fluoroscopically guided, contrast-controlled C6/7 translaminar epidural steroid injection with conscious sedation. Following review of allergy and review of potential side effects and complications, including, but not necessarily limited to, infection, allergic reaction, local tissue breakdown, temporary as well as permanent nerve injury, stroke, paralysis, and possible , the patient indicated that patient understood and agreed to proceed. An informed consent document was signed by the patient, witnessed by a nurse, and placed in the patient's chart. Additionally, other treatment options including modalities, medications, and physical therapy were reviewed with the patient. After review of previous anaesthesic history and IV conscious sedation the patient was deemed safe to proceed with today?s procedure with IV conscious sed ation as ASA class II designation. Safety time-out was performed to confirm patient ID, procedure to be performed and site of procedure. IV sedation was accomplished with a combination of 4mg of Versed administered by the RN after DO order, titrated to patient comfort during the course of the procedure while the patient remained responsive to all verbal commands. In the prone position, following sterile prep and drape of the cervical region, the C6/7 translaminar space was identified fluoroscopically. The skin was anesthetized via a 25-gauge 1.5-inch needle with 1% lidocaine solution. At this point, a 25-gauge, 2.5-inch short bevel spinal needle was atraumatically introduced and advanced under fluoroscopic guidance into epidural space at the C6/7 translaminar space. Depth was confirmed on lateral view. Radiological data, including multiple fluoroscopic views of the cervical spine, reveal a spinal needle at the C6/7 translaminar space. Lateral views then show placement of the needle in the epidural space. Subsequent views show contrast material flowing superiorly and inferiorly in the epidural space. DSA fluoroscopy with live contrast injection, once again, confirmed no vascular or intrathecal uptake. At this point, using loss of resistance technique with saline and air, the epidural space was entered. Following negative aspiration, injection of approximately 1.5 cc of Isovue-200 with live fluoroscopy in the AP view confirmed epidural flow in the epidural space without vascular or intrathecal uptake observed. Subsequently, a test dose of 1 cc of 1% lidocaine solution was injected and patient was observed for two minutes without signs or symptoms of complications, including abdominal pain, shortness of breath, bilateral upper or lower extremity weakness, nausea and vomiting, prior to steroid injection. At this point, 3cc or 30mg of dexamethasone was then injected without incident. The patient tolerated the procedure well without signs or symptoms of co mplications prior to being transferred to the recovery area for further monitoring, The patient was then transferred to the recovery area where they were observed for an appropriate period of time after the injection. The patient reported a VAS score of 6 prior to the procedure and a post-procedure VAS of 0. POST OP INSTRUCTIONS The patient was provided a Pain Log to continue to record their response to the target-specific procedure prior to follow-up visit with the referring provider. Additionally, specific post-injection care instructions and a contact number to our office were provided if concerns arise regarding possible complications associated with the procedure are suspected.
== END 2022-09-24 11:11 | disposition home or self-care (01) ==
LOC: RAD 09:20
PROVIDERS: Family Provider Family Medicine; PCP Family Medicine; Referring Provider Physical Medicine & Rehabilitation; Visit Provider Physical Medicine & Rehabilitation
DX: M48.02 Spinal stenosis, cervical region (principal); M50.123 Cervical disc disorder at C6-C7 level with radiculopathy
CPT/HCPCS: 62321; 99152; J1100; J2250; J3490

== ENCOUNTER 2022-09-26 16:02 | Emergency (ER) | payer MEDICARE, BC, SELFPAY ==
[2022-09-26 16:08] VITALS: BP 154/68; PULSE 65; RESP 16; TEMP 36.7; O2SAT 100; BMI 25.2
--- NOTE | 2022-09-26 16:12 | DI.RAD.S_ITS ---
PROCEDURE: XR FOOT RT 2V INDICATIONS: fall, heard pop in R foot TECHNIQUE: 3 views of the foot were acquired. COMPARISON: None. FINDINGS: Bones: There is a mildly displaced transverse fracture of the proximal 5th metatarsal. No suspicious bony lesions. Degenerative changes are seen, particularly involving the distal 1st metatarsal. Soft tissues: No tibiotalar joint effusion. Achilles tendon appears normal. IMPRESSION: Mildly displaced fracture of the proximal 5th metatarsal. Dictated by: Yung Xavier M.D. on 09/26/2022 at 15:41 Approved by: Yung Xavier M.D. on 09/26/2022 at 15:42
--- NOTE | 2022-09-26 16:53 | ED.FALL ---
HPI - Fall <Dina Preciado PA-C - Last Filed: 09/26/22 17:52> General Chief Complaint: Fall Stated Complaint: Fell, heard pop, R foot pain Time Seen by Provider: 09/26/22 16:52 History of Present Illness HPI Narrative: This is a 67-year-old female with history of arthritis who presents with concern for right foot pain and swelling after she rolled her foot today she states she was walking through a grassy area near [place] and there was recently mowed grass and she did not see that there was a hole that she stepped into. She did does not think it was very deep. She has had quite a bit of pain with weight-bearing since the injury and swelling and pain on the outside for foot. She denies numbness or tingling of the area she states she has had a previous fracture of her foot but did not require surgery. She denies any other injuries including hitting her head, lost consciousness, neck pain. Related Data Home Medications Medication Instructions Recorded Confirmed acetaminophen 650 mg 650 mg PO Q12H 02/05/21 05/07/22 tablet,extended release (Tylenol 8 Hour) buspirone 5 mg tablet 5 mg PO BID 02/05/21 05/07/22 fexofenadine 180 mg tablet 180 mg PO DAILY 02/05/21 05/07/22 fluoxetine 20 mg capsule 30 mg PO DAILY 02/05/21 05/07/22 triamterene 75 1.5 tab PO DAILY 02/05/21 05/07/22 mg-hydrochlorothiazide 50 mg tablet denosumab 60 mg/mL subcutaneous ml SUBCUT 05/07/22 05/07/22 syringe (Prolia) estradiol 2 mg (7.5 mcg/24 hour) vaginal 05/07/22 05/07/22 vaginal ring (Estring) fluoxetine 10 mg capsule 10 mg PO DAILY 05/07/22 05/07/22 losartan 50 mg tablet 50 mg PO DAILY 05/07/22 05/07/22 Allergies Allergy/AdvReac Type Severity Reaction Status Date / Time adhesive Allergy Intermediate Rash Verified 05/07/22 15:47 green pepper Allergy Intermediate GI UPSET Verified 05/07/22 15:47 hydrocodone Allergy Intermediate Rash, FEVER Verified 05/07/22 15:47 lidocaine Allergy Intermediate SWELLING Verified 05/07/22 15:47 mushroom Allergy Intermediate GI UPSET Verified 05/07/22 15:47 Sulfa (Sulfonamide Allergy Intermediate SWELLING, Verified 05/07/22 15:47 Antibiotics) ITCHING, [SULFA (SULFONAMIDE RASH, FEVER ANTIBIOTICS)] Dissolving Sitches AdvReac Mild Can't Uncoded 05/07/22 15:47 Dissolve Review of Systems <Dina Preciado PA-C - Last Filed: 09/26/22 17:52> Review of Systems Narrative: See HPI Patient History <Dina Preciado PA-C - Last Filed: 09/26/22 17:52> Medical History Acute degenerative joint disease of shoulder region Cervical radiculopathy Facet arthropathy, cervical Facet arthropathy, lumbar Impingement syndrome of left shoulder Lumbar radiculopathy Surgical History History of bunionectomy of both great toes Hx of tonsillectomy Social History household members: spouse Smoking Status: Former smoker alcohol intake: current Smoking Status: Former smoker alcohol intake frequency: 0-2 drinks per day Substance Use Type: marijuana Exam <Dina Preciado PA-C - Last Filed: 09/26/22 17:52> Narrative Exam Narrative: GENERAL: 67 year old patient appears stated age. Well-developed patient, in mild distress. HEAD: Atraumatic. Normocephalic. EYES: Pupils equal round and reactive. Extraocular motions intact. No scleral icterus. No injection or drainage. ENT: Nose without bleeding, purulent drainage. Airway patent. NECK: Trachea midline. Non tender CARDIOVASCULAR: Regular rate and rhythm without murmurs, gallops, or rubs. RESPIRATORY: Clear to auscultation. Breath sounds equal bilaterally. No wheezes, rales, or rhonchi. GASTROINTESTINAL: Abdomen soft, non-tender, nondistended. EXTREMITIES: On the affected right foot, there is obvious swelling and tenderness over the proximal 5th metatarsal, Patient has no medial or lateral malleolar tenderness, she has normal active range of motion at the ankle which does cause increased foot pain for her, slight reduced range of motion of pinky and 4th toe. She has strong pedal pulses No edema or joint tenderness. BACK: Nontender without deformity or crepitance. No flank tenderness. NEURO: AOx3. SKIN: No rash or erythema of visible areas Initial Vital Signs Initial Vital Signs: Vital Signs Temperature 98.1 F 09/26/22 16:08 Pulse Rate 65 09/26/22 16:08 Respiratory Rate 16 09/26/22 16:08 Blood Pressure 154/68 H 09/26/22 16:08 Pulse Oximetry 100 09/26/22 16:08 Oxygen Delivery Method Room Air 09/26/22 16:08 <Amanda Paz DO - Last Filed: 10/02/22 19:27> Initial Vital Signs Initial Vital Signs: Vital Signs Temperature 98.1 F 09/26/22 16:08 Pulse Rate 65 09/26/22 16:08 Respiratory Rate 16 09/26/22 16:08 Blood Pressure 154/68 H 09/26/22 16:08 Pulse Oximetry 100 09/26/22 16:08 Oxygen Delivery Method Room Air 09/26/22 16:08 Course <Dina Preciado PA-C - Last Filed: 09/26/22 17:52> Orders Ordered: ED Orders 09/26/22 16:12 XR foot RT 2V Stat Vital Signs Vital signs: Vital Signs - 8 hr 09/26/22 16:08 09/26/22 17:37 Temperature 98.1 F Pulse Rate 65 68 Respiratory Rate 16 18 Blood Pressure 154/68 H 148/60 H Pulse Oximetry 100 96 Oxygen Delivery Method Room Air Room Air <DO Rehana Swartz Last Filed: 10/02/22 19:27> Orders Ordered: ED Orders 09/26/22 16:12 XR foot RT 2V Stat Vital Signs Vital signs: Vital Signs - 8 hr 09/26/22 16:08 09/26/22 17:37 Temperature 98.1 F Pulse Rate 65 68 Respiratory Rate 16 18 Blood Pressure 154/68 H 148/60 H Pulse Oximetry 100 96 Oxygen Delivery Method Room Air Room Air MDM - Fall <EVE Gerber Last Filed: 09/26/22 17:52> Differential Diagnosis Differential diagnosis: Likely other (Fifth metatarsal fracture, foot sprain/strain) Imaging Data Extremity x-ray #1: My Impression: Agree with Radiology interpretation Radiologist's Impression: [address] [address] XRay Report Signed Patient: Dina Reynolds MR#: [id number] : 1955 Acct:[id number] Age/Sex: 67 / F Date of Service: 09/26/22 Loc: ED Accession Number: [id number] ?? Procedure: XR foot RT 2V Ordering Provider: Amanda Paz D.O. PROCEDURE:? XR FOOT RT 2V ? INDICATIONS:? fall, heard pop in R foot ? TECHNIQUE:? 3 views of the foot were acquired.? ? COMPARISON:? None. ? FINDINGS:? ? Bones:? There is a mildly displaced transverse fracture of the proximal 5th metatarsal. ? No suspicious bony lesions.? Degenerative changes are seen, particularly involving the distal 1st metatarsal. ? Soft tissues:? No tibiotalar joint effusion.? Achilles tendon appears normal.? ? ? IMPRESSION:? Mildly displaced fracture of the proximal 5th metatarsal. ? ? Dictated by: Yung Xavier M.D. on 09/26/2022 at 15:41 ? ? Approved by: Yung Xavier M.D. on 09/26/2022 at 15:42?? Treatment and disposition Shared decision making:: Shared decision-making was used indeterminate patient's plan of care in the emergency department and plan for outpatient follow-up. MDM Narrative Medical decision making narrative: This is a 67-year-old woman with a history of arthritis who presents with concern for right foot pain on the outside after she rolled her foot today shortly before presenting to the ER. Exam is concerning for foot sprain/fracture of the 5th metatarsal, x-rays are positive for a Cunningham fracture. Patient was placed in a postop orthopedic shoe provided with crutches and crutch training advised to be nonweightbearing and follow-up with orthopedics this week. Patient had no other concerning findings on exam and no other injuries. Return precautions provided, follow-up plan discussed, all questions answered Discharge Plan Departure Patient Disposition: Home Clinical Impression: Cunningham fracture, Acute pain of right foot Activity Restrictions/Additional Instructions: *You have been diagnosed with 5th metatarsal head fracture or Cunningham fracture *What to do: *Please continue to take your regular medications as directed. [ ] New medication prescriptions sent to your pharmacy: [ ] [ ] New medication written as a paper prescription [ *] No new medications given *Please follow up with your primary care provider in 2-3 days, call for an appointment. I would like you to see orthopedics given the location of this fracture. Please contact the office/number of the orthopedic provider below for follow-up. Let them know you were seen in the Emergency Department and that we ask that you be seen in follow up. We will electronically transmit a record of today's note if your PCP is in our system. Please use the crutches and Shubham wrap as well as the supportive orthopedic shoe, I do not want you bearing any weight on this injury until you have seen Orthopedics. Again, no weight-bearing. (You may have to ask her to wash the windows tomorrow!) *If you do not have a primary care provider please contact the [facility] Resource line at [phone]. They will ask some questions about your medical history and help get you set up with a doctor in the community. *Return to Emergency Department if you should have any new, worsening or concerning symptoms, such as [fever greater than 101 F, shaking chills, worsening pain, persistent vomiting or other bothersome symptoms] Prescriptions: No Action fluoxetine 20 mg capsule 30 mg PO DAILY buspirone 5 mg tablet 5 mg PO BID triamterene-hydrochlorothiazid 75-50 mg tablet 1.5 tab PO DAILY acetaminophen [Tylenol 8 Hour] 650 mg tablet extended release 650 mg PO Q12H fexofenadine 180 mg tablet 180 mg PO DAILY Estring 2 mg (7.5 mcg /24 hour) ring vaginal fluoxetine 10 mg capsule 10 mg PO DAILY Patient Comments: TAKE 3 CAPSULES BY MOUTH EVERY DAY losartan 50 mg tablet 50 mg PO DAILY Prolia 60 mg/mL syringe SUBCUT Referrals: Sarah Cerda MD [Physician] - Dina Berrios MD [Primary Care Provider] - Stand Alone Forms: Patient Portal/API <Amanda Paz DO - Last Filed: 10/02/22 19:27> [facility] Danielaature Attestation: I was immediately available in the department for consultation. Documentation has been reviewed.
[2022-09-26 17:37] VITALS: BP 148/60; PULSE 68; RESP 18; O2SAT 96
== END 2022-09-26 17:32 | disposition home or self-care (01) ==
PROVIDERS: Emergency Provider Student in an Organized Health Care Education/Training Program; Family Provider Family Medicine; PCP Family Medicine
DX: S92.351A Displaced fracture of fifth metatarsal bone, right foot, initial encounter for closed fracture (principal); X50.1XXA Overexertion from prolonged static or awkward postures, initial encounter
CPT/HCPCS: 73620; 99283

== ENCOUNTER 2022-11-05 15:00 | Outpatient (RCR) | payer OTHER, MEDICARE, BC, SELFPAY ==
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
--- NOTE | 2022-09-10 11:07 | PT.OPPOC ---
Physical, Occupational & Speech Therapy At [facility] Current Diagnoses Primary osteoarthritis, unspecified shoulder (09/10/22) Impingement syndrome of left shoulder (09/10/22) Visit Care Team Role Provider Type Dina Berrios MD Family Provider Physician Primary Care Provider Specialty: Family Practice Address: [facility] [place], [address] Email: [email or web address] Marc Flores DO Attending Provider Physician Referring Provider Specialty: Physiatry Pain Management Address: [address] [place], [address] Email: [email or web address] Plan Of Care PT-OP-T Assessment and Plan Start: 08/06/22 15:21 Freq: Status: Active Protocol: Document 09/10/22 09:45 [facility] (Rec: 09/10/22 11:00 [facility] [id number]) Physical Therapy Assessment Goals 4 Impairment quick dash score is 24% with limitations in functional activities Security Services Specialist Goal (LTG) Quick dash score is improved by 10% and pt notes overall improvement with functional activities Good improvement in ability to engage in functional activities LTG Duration 8 weeks+ 3 Impairment Left shoulder weakness and pt reports she does not trust holding objects in her left hand Security Services Specialist Goal (LTG) left shoulder strength is improved to WFL and pt is able to return to carrying objects in her left hand Excellent progress LTG Duration 8 weeks + 2 Impairment left shoulder and neck pain rated 2-4/10 limiting her ability to golf and bike ride. Short Term Goal (STG) Gladis is able to tolerate cervical PROM and gentle stretching without increased pain GOAL MET STG Duration 4 weeks Security Services Specialist Goal (LTG) Gladis reports a overall reduction in pain and is able to return to golf and bike riding activities Good progress LTG Duration 8 weeks+ 1 Impairment Decreased left shoulder ROM and pt has difficulty with activities that require lifting her left arm overhead Short Term Goal (STG) Gladis is educated on a AAROM shoulder program for home 08/27/22: GOAL MET: pt able to complete AROM ther ex: see measurements today. GOAL MET STG Duration 2 weeks GOAL MET Shelter Goal (LTG) Gladis demonstrates overall improvement with shoulder ROM and presents with [facility] for shoulder ROM 08/27/22: progressing: L shld AROM standing: FF gained 14 deg (154) ABD less 12 deg (128) ER gained 33 deg IR behind back gained 1 vertebra (T11) LTG Duration 8 weeks + Progress Towards Goals Progress Towards Goals Progressing Toward Goals Assessment Summary Assessment Gladis is making steady progress with PT for her shoulder and neck. Her ROM is increasing and she has decreased tension in her left upper trapezius and SCM musculature. There is still some instability in the left AC joint and pt will get a clicking here with end range shoulder ROM. We have started her with rotator cuff strengthening which she is tolerating well to help with stabilization. Gladis will be leaving to [place] for a couple of weeks and then has an appointment with Dr. Flores for a cortisone injection prior to returning to PT. She would benefit from continued PT Physical Therapy Plan Frequency and Duration Frequency of Treatment 2x/Week Duration of treatment (weeks) 8 Plan of Care Start Date 09/10/22 Plan of Care End Date 11/05/22 Therapeutic Interventions Therapeutic Interventions Home Exercise Program,Manual Therapy,Patient/Caregiver Education,Self-Care/Home Management,Therapeutic Exercises Modalities Cold Pack/Ice Massage Next Visit Focus/Plan Next Note Type Treatment Note Next Visit Plan Check in with how Gladis is doing s/p cortisone injection. Review new rotator cuff exercises and continue working on shoulder ROM as well as neck ROM Plan of Care Dates Plan of Care Start Date 09/10/22 Plan of Care End Date 11/05/22 Electronically Signed by: Lilly Montoya, PT 09/10/22 6701 If you are in agreement with this Plan of Care, please return a signed and dated copy. I have reviewed this Plan of Care and certify that the skilled therapy services above are required to meet the patient?s needs. Physician Signature Date Printed Name and Credentials Clinical Instructor Signature Printed Name and Credentials
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
== END 2022-11-09 14:05 | disposition home or self-care (01) ==
LOC: PHYS 15:00
PROVIDERS: Family Provider Family Medicine; PCP Family Medicine; Referring Provider Physical Medicine & Rehabilitation; Visit Provider Physical Medicine & Rehabilitation
DX: M75.42 Impingement syndrome of left shoulder (principal); M19.019 Primary osteoarthritis, unspecified shoulder
CPT/HCPCS: 97110; 97140; 97161; 97535

== ENCOUNTER → 2022-11-18 10:55 | Outpatient (CLI) | payer MEDICARE, BC, SELFPAY ==
--- NOTE | 2022-11-18 | DI.MG.S_ITS ---
BILATERAL DIGITAL SCREENING MAMMOGRAM 3D/2D WITH CAD: 11/18/2022 CLINICAL: Routine screening. Comparison is made to exams dated: 11/06/2021 mammogram, 11/05/2020 mammogram, and 11/04/2019 mammogram - [facility]. Both breasts are heterogeneously dense, which may obscure small masses (category c / 51-75% glandular tissue). Current study was also evaluated with a Computer Aided Detection (CAD) system. There are benign calcifications in the left breast. No significant masses, calcifications, or other findings are seen in either breast. There has been no significant interval change. IMPRESSION: BENIGN There is no mammographic evidence of malignancy. A 1 year screening mammogram is recommended. Based on the Tyrer Cuzick model (a risk assessment model) the patient's lifetime risk is 8.9% and her 10 year risk is 4.8%. According to the ACR, ACS, and NCCN guidelines, an annual breast MRI exam along with mammogram is recommended if the patient's lifetime risk is 20% or greater. This exam was interpreted at Station ID: [id number]. NOTE: For mammograms, a report in lay terms will be sent to the patient. Approximately 15% of breast malignancies will not be visualized mammographically. In the management of a palpable breast mass, a negative mammogram must not discourage biopsy of a clinically suspicious lesion. Electronically Signed By: Rudolph siu/arjun:11/18/2022 12:33:09 letter sent: Normal Exam ACR BI-RADS Category 2: Benign Finding(s) [id number]
== END ==
PROVIDERS: Family Provider Family Medicine; PCP Family Medicine; Referring Provider Family Medicine; Visit Provider Family Medicine
DX: Z12.31 Encounter for screening mammogram for malignant neoplasm of breast (principal)
CPT/HCPCS: 77063; 77067

== ENCOUNTER → 2023-01-04 12:46 | Outpatient (CLI) | payer MEDICARE, BC, SELFPAY ==
--- NOTE | 2023-01-04 | DI.RAD.S_ITS ---
PROCEDURE: [place] BARIUM SWALLOW INDICATIONS: Other dysphagia COMPARISON: [facility] , [place] BARIUM SWALLOW, 08/04/2018, 13:02. FINDINGS: Function: There is [id number] weakened esophageal peristalsis. No elicited gastroesophageal reflux. No tertiary contractions. Mild stasis of contrast. Morphology: . Single contrast views show no esophageal strictures, extrinsic mass effects, or diverticula. Limited images of the stomach demonstrate normal appearance. IMPRESSION: Moderate esophageal dysmotility. No gastroesophageal reflux. Dictated by: Winston Marx M.D. on 01/04/2023 at 16:12 Approved by: Winston Marx M.D. on 01/04/2023 at 16:12
== END ==
PROVIDERS: Family Provider Family Medicine; PCP Family Medicine; Referring Provider Family Medicine; Visit Provider Family Medicine
DX: R13.19 Other dysphagia (principal); K22.4 Dyskinesia of esophagus
CPT/HCPCS: 74220

== ENCOUNTER → 2023-06-29 09:41 | Outpatient (CLI) | payer MEDICARE, BC, SELFPAY ==
--- NOTE | 2023-06-29 | DI.RAD.S_ITS ---
Bone Density Report Name: RONAN JENKINS Age: 68 Sex: Female Ethnicity: White Date of : 1955 Indication: osteopenia; monitoring treatment; prior fracture; Referring Provider: RONAN NEW Study: Bone densitometry was performed. Exam Date: June 29, 2023 Accession number: [id number] Bone Density: Region BMD T-score Z-score Classification AP Spine(L1-L4) 1.049 0.0 2.0 Normal Femoral Neck (Left) 0.517 -3.0 -1.3 Osteoporosis Total Hip (Left) 0.757 -1.5 -0.1 Osteopenia Femoral Neck (Right) 0.537 -2.8 -1.1 Osteoporosis Total Hip (Right) 0.738 -1.7 -0.3 Osteopenia Total Hip Mean 0.747 -1.6 -0.2 Osteopenia World Health Organization criteria for BMD impression classify patients as: Normal (T-score at or above -1.0), Osteopenia (T-score between -1.0 and -2.5), or Osteoporosis (T-score at or below -2.5). 10-year Fracture Risk: FRAX not reported because: Some T-score for Spine Total or Hip Total or Femoral Neck at or below -2.5 Prior hip or vertebral fracture Treated for osteoporosis Previous Exams: -- Region Exam Age BMD T-score BMD Change BMD Change Date g/cm2 vs Baseline vs Previous -- AP Spine (L1-L4) 06/29/2023 68 1.049 0.0 0.184 (21.3%)# 0.044 (4.3%)* 06/08/2022 67 1.005 -0.4 0.141 (16.3%)# -0.035 (-3.4%)# 05/23/2021 66 1.040 -0.1 0.176 (20.3%)* 0.023 (2.3%)* 12/06/2019 64 1.017 -0.3 0.153 (17.7%)* 0.118 (13.1%)* 12/13/2017 62 0.899 -1.3 0.034 (4.0%)* 0.038 (4.4%)* 04/22/2015 60 0.861 -1.7 -0.004 (-0.4%) -0.004 (-0.4%) 03/24/2013 57 0.865 -1.7 Total Hip(Left) 06/29/2023 68 0.757 -1.5 0.094 (14.1%)# -0.003 (-0.3%)# 06/08/2022 67 0.760 -1.5 0.096 (14.5%)# 0.046 (6.4%)# 05/23/2021 66 0.714 -1.9 0.051 (7.6%)* 0.018 (2.6%) 12/06/2019 64 0.696 -2.0 0.033 (4.9%)* 0.029 (4.3%)* 12/13/2017 62 0.667 -2.3 0.004 (0.6%) -0.016 (-2.3%) 04/22/2015 60 0.683 -2.1 0.019 (2.9%) 0.019 (2.9%) 03/24/2013 57 0.663 -2.3 Total Hip(Right) 06/29/2023 68 0.738 -1.7 0.081 (12.3%)# 0.003 (0.5%)# 06/08/2022 67 0.734 -1.7 0.077 (11.8%)# 0.025 (3.5%)# 05/23/2021 66 0.709 -1.9 0.052 (7.9%)* 0.005 (0.7%) 12/06/2019 64 0.704 -1.9 0.047 (7.2%)* 0.058 (9.0%)* 12/13/2017 62 0.646 -2.4 -0.011 (-1.7%) -0.027 (-4.0%)* 04/22/2015 60 0.673 -2.2 0.016 (2.5%) 0.016 (2.5%) 03/24/2013 57 0.657 -2.3 -- *Denotes significance at 95% confidence level, LSC for AP Spine = 0.022 g/cm2, LSC for Total Hip = 0.027 g/cm2 # Denotes dissimilar scan types or analysis methods Impression: The patient has established osteoporosis, based on the Left Femoral Neck T-score and the existence of a prior fracture. The patient has risk factors, including: previous fracture. No significant bone loss was observed. Discussion: PATIENT UNDER TREATMENT WITH NO SIGNIFICANT BMD LOSS SINCE LAST EXAM. In an untreated patient, BMD typically declines with age. A lack of decline or gain is usually a sign that treatment is efficacious and fracture risk is reduced. It is important to ask patients whether they are taking their medications and to encourage continued and appropriate compliance with their osteoporosis therapies to reduce fracture risk. It is also important to review their risk factors and encourage appropriate calcium and vitamin D intakes, exercise, fall prevention and other lifestyle measures. Follow-Up: Consider a repeat BMD and Vertebral Fracture Assessment (VFA) exam in 2 years or sooner if medically necessary, to reassess this patient's status. Reported by: DURAN PEOPLES M.D. on 06/29/2023 10:01:00 AM.
== END ==
LOC: RAD 09:42
PROVIDERS: Family Provider Family Medicine; PCP Family Medicine; Referring Provider Family Medicine; Visit Provider Family Medicine
DX: M81.0 Age-related osteoporosis without current pathological fracture (principal)
CPT/HCPCS: 77080

== ENCOUNTER → 2023-09-16 13:20 | Outpatient (CLI) | payer MEDICARE, BC, SELFPAY ==
--- NOTE | 2023-09-16 13:22 | DI.RAD.S_ITS ---
PROCEDURE: XR LUMBAR SPINE MIN 4V INDICATIONS: BACK PAIN TECHNIQUE: 5 views of the lumbar spine were acquired, including bilateral oblique views. [facility], 08/08/2015, 12:33. FINDINGS: Bones: 5 nonrib-bearing vertebrae are present. There is normal bony alignment. Small vertebral body osteophytes. Multilevel disc space height loss. No vertebral body compression fractures. No suspicious bony lesions. Soft tissues: Overlying bowel gas pattern is normal. No suspicious soft tissue calcifications. Oblique images: No pars defects. IMPRESSION: No compression fracture. Moderate degenerative changes. Dictated by: Karlos Gonzales M.D. on 09/16/2023 at 16:13 Approved by: Karlos Gonzales M.D. on 09/16/2023 at 16:14
== END ==
PROVIDERS: Family Provider Family Medicine; PCP Family Medicine; Referring Provider Physical Medicine & Rehabilitation; Visit Provider Physical Medicine & Rehabilitation
DX: M47.26 Other spondylosis with radiculopathy, lumbar region (principal)
CPT/HCPCS: 72110

== ENCOUNTER → 2023-09-30 08:15 | Outpatient (CLI) | payer MEDICARE, BC, SELFPAY ==
--- NOTE | 2023-09-30 08:17 | DI.ECHO.S_ITS ---
[facility]+ [facility] : : [address] : : [place] : : [id number] : : Phone: [phone] Echocardiogram Report + + :Name: RONAN JENKINS Study Date: 09/30/2023 Height: 62.5 in: :Hospital ReadingLocation: Weight: 135 lb : : Gender: Female BSA: 1.6 m2 : :: 1955 Age: 68 yrs BP: 115/68 mmHg: :Reason For Study: CARDIAC MURMUR : :Ordering Physician: SHAQ, : :RONAN Performed By: Doretha Mishra : :Referring: RONAN NEW : + + Interpretation Summary Normal sinus rhythm. Normal LV size and wall thickness. Normal wall motion and LV systolic function. Ejection fraction is 60-65%. Aneurysmal interatrial septum with possible PFO based on color-flow Doppler. Aortic valve is a trileaflet structure with mild associated aortic regurgitation. Otherwise no significant valvular abnormalities. Compared to prior study 01/30/2020, aortic regurgitation is new. Procedure: A two-dimensional transthoracic echocardiogram with color flow and Doppler was performed. The study quality was technically adequate. Comparison is made with the echocardiogram of 01/30/2020. The patient was in sinus bradycardia with heart rates between 55-67 bpm during the exam. Left Ventricle: The left ventricle is normal in size and wall thickness. The ejection fraction is estimated to be 60-65%. Right Ventricle: The right ventricle is normal in size and function. Atria: The left atrial size is normal. Right atrial size is normal. There is no Doppler evidence for an interatrial shunt. Mitral Valve: The mitral valve is normal in structure and function. There is mild mitral valve prolapse. There is mild mitral regurgitation. Aortic Valve: The aortic valve is trileaflet. The aortic valve opens well. There is no aortic valve stenosis. There is mild aortic regurgitation. Tricuspid Valve: The tricuspid valve is normal in structure and function. There is mild tricuspid regurgitation. The right ventricular systolic pressure is estimated to be at least 21 mmHg based on an estimated right atrial pressure of 3 mm Hg. Pulmonic Valve: The pulmonic valve leaflets are thin and pliable; valve motion is normal. There is mild pulmonic regurgitation. Great Vessels: The aortic root is normal size. The dimensions of the ascending aorta are normal. The IVC is of normal diameter and collapses greater than 50% with a sniff. This suggests a low right atrial pressure of 3 mm Hg. Pericardium/ Pleura There is no pericardial effusion. There is no pleural effusion. MMode/2D Measurements & Calculations LVIDd: 4.2 cm LVOT diam: 2.0 cm LVIDs: 2.6 cm Ao root diam: 2.9 cm FS: 38.4 % asc Aorta Diam: 2.4 cm IVSd: 0.69 cm Ao Arch Diam (Prox Trans): 2.4 cm LVPWd: 0.78 cm LV machado. diameter/BSA (cm/m^2): 2.6 LV sys. diameter/BSA (cm/m^2): 1.6 LA A2 area: 18.7 cm2 RA long axis: 4.5 cm LA A4 area: 13.1 cm2 RA area: 12.5 cm2 LA length (vol): 4.5 cm RA vol: 29.6 ml LA vol: 45.9 ml RA : 18.1 ml/m2 LA vol index: 28.2 ml/m2 IVC diam: 1.8 cm RVD1 (basal): 3.3 cm RVD2 (mid): 3.0 cm TAPSE: 2.0 cm Doppler Measurements & Calculations Ao V2 max: 174.6 cm/sec LVOT Max Deny: 101.6 cm/sec Ao V2 mean: 112.9 cm/sec LV V1 max P.1 mmHg Ao max P.2 mmHg LV V1 VTI: 20.4 cm Ao mean P.8 mmHg DEANDRE(I,D): 1.7 cm2 Ao V2 VTI: 37.8 cm DEANDRE(V,D): 1.8 cm2 sev ratio: 0.54 DEANDRE indexed to BSA (cm^2/m^2): 1.0 AI P1/2t: 857.8 msec AI dec slope: 135.7 cm/sec2 MV E max deny: 78.4 cm/sec TR max deny: 211.8 cm/sec MV A max edny: 64.0 cm/sec TR max P.9 mmHg MV E/A: 1.2 PA V2 max: 102.7 cm/sec Med Peak E' Deny: 9.1 cm/sec PA V2 mean: 73.4 cm/sec E/E' med: 8.6 PA mean P.4 mmHg Lat Peak E' Deny: 8.1 cm/sec PA pr(Accel): 8.8 mmHg E/E' lat: 9.7 E/e' average: 9.2 MV dec time: 0.18 sec SV(LVOT): 63.3 ml Electronically signed by: Lata Neil M.D. on [place] Physician:09/30/2023 03:58 PM
== END ==
PROVIDERS: Family Provider Family Medicine; PCP Family Medicine; Referring Provider Family Medicine; Visit Provider Family Medicine
DX: R01.1 Cardiac murmur, unspecified (principal); I10 Essential (primary) hypertension
CPT/HCPCS: 93306

== ENCOUNTER 2023-10-12 13:55 | Outpatient (CLI) | payer MEDICARE, BC, SELFPAY ==
[2023-10-12] VITALS (8 sets, daily range): BP systolic 117–182; BP diastolic 58–74; PULSE 61–78; RESP 12–19; TEMP 36.4; O2SAT 99–100
--- NOTE | 2023-10-12 14:30 | DI.RAD.S_ITS ---
PROCEDURE: PAIN L/S TRANSFORAMINAL INJECT INDICATIONS: RIGHTL4-5 transforaminal BRYAN COMPARISON: None. FINDINGS: Fluoroscopic spot filming was performed to verify placement of spinal needle at the right L4-5 level, as labeled on the films. Appropriate location of the needle tip was confirmed by injection of iodinated contrast. IMPRESSION: Intraprocedural examination demonstrates appropriate needle positioning. Approved by: Vipin Boss M.D. on 10/12/2023 at 22:27
[2023-10-12] MEDS: MIDAZOLAM 2 MG/2 ML VIAL IV (14:33)
[2023-10-12] MEDS: iopamidoL 15 ML VIAL 3 ML INJ (14:38)
[2023-10-12] MEDS: BUPIVACAINE 0.25% (PF) VIAL 2 ML INJ (14:39)
[2023-10-12] MEDS: DEXAMETHASONE 10 MG/ML VIAL INJ (14:40)
[2023-10-12] MEDS: BETAMETHASONE 30 MG/5 ML MDV 6 MG INJ (14:40)
--- NOTE | 2023-10-12 14:40 | PC.NURSE ---
Before the procedure began, Patient's Lidocaine allergy was discussed with her and Dr. Flores. SHe stated that she had swelling after a dental procedure that did not go away for a couple of weeks. Patient also stated that Marcaine is ok and that she did not notice any swelling or other issues after her cervical procedure that she had the last time she was here.
--- NOTE | 2023-10-12 14:54 | P.PCN_ITS ---
Date/Time/Diagnoses Date of procedure: 10/12/23 Time of procedure: 14:54 Pre-procedure diagnosis: 1. FORAMINAL STENOSIS WITH LE SYMPTOMS Post-procedure diagnosis: same Procedure Notes Procedure: 1. FLUOROSCOPICALLY GUIDED CONTRAST CONTROLLED TRANSFORAMINAL EPIDURAL STEROID INJECTION - RIGHT L4/5 TFESI Indications: Dina is referred by Dr. Berrios for treatment of Foraminal Stenosis with Right LE Symptoms Physician: Marc Flores Total Fluoroscopy time (seconds): 12 Total sedation minutes: 14 Complications: none Procedure in detail & Post-procedure care: FINDINGS Foraminal Nerve Root Compression secondary to disc disease and facet hypertrophy DESCRIPTION OF PROCEDURE Following review of allergy and review of potential side effects and complications, including, but not necessarily limited to, infection, allergic reaction, local tissue breakdown, stroke, temporary or permanent nerve injury, paralysis, and possible , the patient indicated that the patient understood and agreed to proceed. An informed consent document was signed by the patient, witnessed by a nurse, and placed in the patient's chart. Additionally, other treatment options including medications, modalities, and physical therapy were reviewed with the patient. After review of previous anaesthesic history and IV conscious sedation the patient was deemed safe to proceed with today?s procedure with IV conscious sedation as ASA class II designation. Safety time-out was performed to confirm patient ID, procedure to be performed and site of procedure. IV sedation was accomplished with a combination of 2mg of Versed was administered by the RN after DO order, titrated to patient comfort during the course of the procedure while the patient remained responsive to all verbal commands In the prone position following sterile prep and drape of the lumbar region, the right L4/5 posterior neuroforamen was identified fluoroscopically. The skin was anesthetized via a 25-gauge 1.5-inch needle with 1% lidocaine solution. At this point, a 25-gauge 3.5-inch spinal needle was atraumatically introduced and advanced under fluoroscopic guidance through the posterior right L4/5 neuroforamen to approximately the anterior aspect of the canal. Depth was confirmed on lateral view. Following negative aspiration, injection of approximately 1.5cc of Isovue 200 under live fluoroscopy in the AP view confirmed excellent flow along the nerve root, into the epidural space without vascular or intrathecal uptake observed Radiological data, including multiple fluoroscopic views of the lumbosacral spine, reveal a spinal needle at the right L4/5 posterior neuroforamen. Subsequent views show flow of contrast material flowing superiorly and inferiorly along the nerve root confirming epidural flow. Subsequently, a test dose of 1.5 cc of 1% lidocaine solution was administered and patient was observed for two minutes for signs or symptoms of complications, including abdominal pain, shortness of breath, bilateral upper or lower extremity weakness, nausea and vomiting, prior to steroid injection. At this point, a total of 2cc or 10mg of dexamethasone and 6mg of betamethasone was injected without incident. The procedure tolerated the procedure well without signs or symptoms of complications prior to transfer to the recovery area continued monitoring without incident. The patient was then transferred to the recovery area where they were observed for an appropriate time after the injection. The patient reported a VAS score of 9 prior to the procedure and a post- procedure VAS of 2. POST OP INSTRUCTIONS The patient was provided a Pain Log to continue to record their response to the target-specific procedure prior to follow-up visit with their referring physician. Additionally, specific post-injection care instructions and a contact number to our office were provided if concerns arise regarding possible complications associated with the procedure are suspected.
== END 2023-10-12 15:16 | disposition home or self-care (01) ==
PROVIDERS: Family Provider Family Medicine; PCP Family Medicine; Referring Provider Physical Medicine & Rehabilitation; Visit Provider Physical Medicine & Rehabilitation
DX: M48.061 Spinal stenosis, lumbar region without neurogenic claudication (principal); M51.16 Intervertebral disc disorders with radiculopathy, lumbar region; M47.26 Other spondylosis with radiculopathy, lumbar region
CPT/HCPCS: 64483; 99152; J0702; J1100; J2250; J3490

== ENCOUNTER → 2023-12-28 15:13 | Outpatient (CLI) | payer MEDICARE, BC, SELFPAY ==
--- NOTE | 2023-12-28 15:15 | DI.MG.S_ITS ---
BILATERAL DIGITAL SCREENING MAMMOGRAM 3D/2D WITH CAD: 12/28/2023 CLINICAL: Routine screening. Comparison is made to exams dated: 11/18/2022 mammogram, 11/06/2021 mammogram, and 11/05/2020 mammogram - [facility]. There are scattered areas of fibroglandular density in both breasts (category b / 25%-50% glandular tissue). Current study was also evaluated with a Computer Aided Detection (CAD) system. There is a benign calcification in the left breast. No significant masses, calcifications, or other findings are seen in either breast. There has been no significant interval change. IMPRESSION: BENIGN There is no mammographic evidence of malignancy. A 1 year screening mammogram is recommended. Based on the Tyrer Cuzick model (a risk assessment model) the patient's lifetime risk is 5.6% and her 10 year risk is 3.1%. According to the ACR, ACS, and NCCN guidelines, an annual breast MRI exam along with mammogram is recommended if the patient's lifetime risk is 20% or greater. This exam was interpreted at Station ID: [id number]. NOTE: For mammograms, a report in lay terms will be sent to the patient. Approximately 15% of breast malignancies will not be visualized mammographically. In the management of a palpable breast mass, a negative mammogram must not discourage biopsy of a clinically suspicious lesion. Electronically Signed By: Lizzy kelsey/arjun:12/29/2023 16:09:28 letter sent: Normal Exam ACR BI-RADS Category 2: Benign Finding(s) [id number]
== END ==
PROVIDERS: Family Provider Family Medicine; PCP Family Medicine; Referring Provider Family Medicine; Visit Provider Family Medicine
DX: Z12.31 Encounter for screening mammogram for malignant neoplasm of breast (principal); R92.323 Mammographic fibroglandular density, bilateral breasts
CPT/HCPCS: 77063; 77067

== ENCOUNTER 2024-06-13 13:01 | Outpatient (CLI) | payer MEDICARE, OTHER, SELFPAY ==
[2024-06-13] VITALS (9 sets, daily range): BP systolic 112–140; BP diastolic 52–63; PULSE 50–61; RESP 14–20; TEMP 36.2; O2SAT 99–100
--- NOTE | 2024-06-13 13:05 | DI.RAD.S_ITS ---
PROCEDURE: PAIN L/S TRANSFORAMINAL INJECT INDICATIONS: RIGHT L5/S1 TF BRYAN COMPARISON: [facility], , PAIN L/S TRANSFORAMINAL INJECT, 10/12/2023, 14:38. FINDINGS/IMPRESSION: Fluoroscopic spot filming was performed to verify placement of spinal needles at the L5-S1 level(s), as labeled on the films. Appropriate location(s) of the needle tip(s) was confirmed by injection of iodinated contrast. Dictated by: Mariaa Cain M.D. on 06/13/2024 at 20:39 Approved by: Mariaa Cain M.D. on 06/13/2024 at 20:39
[2024-06-13] MEDS: MIDAZOLAM 2 MG/2 ML VIAL IV (14:17)
[2024-06-13] MEDS: DEXAMETHASONE 10 MG/ML VIAL INJ (14:20)
[2024-06-13] MEDS: BUPIVACAINE 0.25% (PF) VIAL 2 ML INJ (14:20)
[2024-06-13] MEDS: iopamidoL 15 ML VIAL 3 ML INJ (14:20)
[2024-06-13] MEDS: BETAMETHASONE 30 MG/5 ML MDV 12 MG INJ (14:20)
--- NOTE | 2024-06-13 14:30 | P.PCN_ITS ---
Date/Time/Diagnoses Date of procedure: 06/13/24 Time of procedure: 14:31 Pre-procedure diagnosis: FORAMINAL STENOSIS WITH LE SYMPTOMS Post-procedure diagnosis: same Procedure Notes Procedure: 1. FLUOROSCOPICALLY GUIDED CONTRAST CONTROLLED TRANSFORAMINAL EPIDURAL STEROID INJECTION - RIGHT L5/S1 TFESI Indications: Dina is referred by Dr. Berrios for treatment of Foraminal Stenosis with Right LE Symptoms Physician: Marc Flores Total Fluoroscopy time (seconds): 9 Total sedation minutes: 10 Complications: none Procedure in detail & Post-procedure care: FINDINGS Foraminal Nerve Root Compression secondary to disc disease and facet hypertrophy DESCRIPTION OF PROCEDURE Following review of allergy and review of potential side effects and complications, including, but not necessarily limited to, infection, allergic reaction, local tissue breakdown, stroke, temporary or permanent nerve injury, paralysis, and possible , the patient indicated that the patient understood and agreed to proceed. An informed consent document was signed by the patient, witnessed by a nurse, and placed in the patient's chart. Additionally, other treatment options including medications, modalities, and physical therapy were reviewed with the patient. After review of previous anaesthesic history and IV conscious sedation the patient was deemed safe to proceed with today?s procedure with IV conscious sedation as ASA class II designation. Safety time-out was performed to confirm patient ID, procedure to be performed and site of procedure. IV sedation was accomplished with a combination of 2mg of Versed was administered by the RN after DO order, titrated to patient comfort during the course of the procedure while the patient remained responsive to all verbal commands In the prone position following sterile prep and drape of the lumbar region, the right L5/S1 posterior neuroforamen was identified fluoroscopically. The skin was anesthetized via a 25-gauge 1.5-inch needle with 1% lidocaine solution. At this point, a 25-gauge 3.5-inch spinal needle was atraumatically introduced and advanced under fluoroscopic guidance through the posterior right L5/S1 neuroforamen to approximately the anterior aspect of the canal. Depth was confirmed on lateral view. Following negative aspiration, injection of approximately 1.5cc of Isovue 200 under live fluoroscopy in the AP view confirmed excellent flow along the nerve root, into the epidural space without vascular or intrathecal uptake observed Radiological data, including multiple fluoroscopic views of the lumbosacral spine, reveal a spinal needle at the right L5/S1 posterior neuroforamen. Subsequent views show flow of contrast material flowing superiorly and inferiorly along the nerve root confirming epidural flow. Subsequently, a test dose of 1.5 cc of 1% lidocaine solution was administered and patient was observed for two minutes for signs or symptoms of complications, including abdominal pain, shortness of breath, bilateral upper or lower ext remity weakness, nausea and vomiting, prior to steroid injection. At this point, a total of 2cc or 10mg of dexamethasone and 6mg of betamethasone was injected without incident. The procedure tolerated the procedure well without signs or symptoms of complications prior to transfer to the recovery area continued monitoring without incident. The patient was then transferred to the recovery area where they were observed for an appropriate time after the injection. The patient reported a VAS score of 7 prior to the procedure and a post- procedure VAS of 0. POST OP INSTRUCTIONS The patient was provided a Pain Log to continue to record their response to the target-specific procedure prior to follow-up visit with their referring physician. Additionally, specific post-injection care instructions and a contact number to our office were provided if concerns arise regarding possible complications associated with the procedure are suspected.
== END 2024-06-13 14:54 | disposition home or self-care (01) ==
LOC: RAD 13:04
PROVIDERS: Family Provider Family Medicine; PCP Family Medicine; Referring Provider Physical Medicine & Rehabilitation; Visit Provider Physical Medicine & Rehabilitation
DX: M47.27 Other spondylosis with radiculopathy, lumbosacral region (principal); M51.17 Intervertebral disc disorders with radiculopathy, lumbosacral region
CPT/HCPCS: 64483; 99152; J0702; J1100; J2250; J3490

== ENCOUNTER → 2024-06-15 15:16 | Outpatient (CLI) | payer MEDICARE, OTHER, SELFPAY ==
--- NOTE | 2024-06-15 15:19 | DI.RAD.S_ITS ---
PROCEDURE: XR DEXA AXIAL SKELETON INDICATIONS: OSTEOPOROSIS SCREENING COMPARISON: [facility], CR, XR DEXA AXIAL SKELETON, 06/29/2023, 9:52. FINDINGS: Lumbar Spine: Bone mineral density 1.165 g/cm2, T score 0.8, previously 0.0. Left Femoral Neck: Bone mineral density 0.520 g/cm2, T score -3.0., previously -3.0 Left Hip: Bone mineral density is 0.768 g/cm2, T score -1.4, previously -1.5. Fracture Risk Calculation (when applicable): 10-year fracture risk of a major osteoporotic fracture 41 percent and of a hip fracture 14 percent. (T score greater or equal to -1.0 to: NORMAL) (T score from -1.1 to -2.4: OSTEOPENIA) (T score less than or equal to -2.5: OSTEOPOROSIS) IMPRESSION: Osteoporosis Follow-up guidelines as follows: Osteoporosis: Consider a repeat DEXA and Vertebral Fracture Assessment (VFA) exam in 2 years or sooner if medically necessary, to reassess this patient's status. Osteopenia: Consider a repeat DEXA in 2-3 years to reassess this patient's status, or if there is a new clinical indication. Normal: Consider a repeat DEXA in 5 years or sooner, or if there is a new clinical indication. All treatment decisions require clinical judgment and consideration of individual patient factors, including patient preferences, comorbidities, previous drug use, risk factors not captured in the FRAX model (e.g., frailty, falls, vitamin D deficiency, increased bone turnover, interval significant decline in bone density ) and possible under- or over-estimation of fracture risk by FRAX. In addition, the NOF Guide recommends that FDA-approved medical therapies be considered in postmenopausal women and men age >= 50 years with a: * Hip or vertebral (clinical or morphometric) fracture * T-score of <=-2.5 at the spine or hip * Ten-year fracture probability by FRAX of >= 3% for hip fracture or >=20% for major osteoporotic fracture. Approved by: Ervin Shell M.D. on 06/16/2024 at 18:18
== END ==
PROVIDERS: Family Provider Family Medicine; PCP Family Medicine; Referring Provider Family Medicine; Visit Provider Family Medicine
DX: M81.0 Age-related osteoporosis without current pathological fracture (principal)
CPT/HCPCS: 77080

== ENCOUNTER → 2024-06-28 14:06 | Outpatient (CLI) | payer MEDICARE, OTHER, SELFPAY ==
--- NOTE | 2024-06-28 14:07 | DI.RAD.S_ITS ---
PROCEDURE: XR CERVICAL SPINE 4V OR 5V INDICATIONS: NECK PAIN TECHNIQUE: 5 views of the cervical spine acquired. COMPARISON: [facility], CR, XR CERVICAL SPINE 4V OR 5V, 04/30/2022, 9:18. FINDINGS: Bones: No fractures or dislocations to the T1 level. Oblique images demonstrate no bony foraminal stenoses. Disc space narrowing and hypertrophic arthropathy noted in the mid to lower cervical spine, similar prior exam. Soft tissues: No prevertebral soft tissue swelling. IMPRESSION: Degenerative disc disease and arthropathy without significant foraminal stenosis. 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 on 06/28/2024 at 17:13
== END ==
PROVIDERS: Family Provider Family Medicine; PCP Family Medicine; Referring Provider Physical Medicine & Rehabilitation; Visit Provider Physical Medicine & Rehabilitation
DX: M47.22 Other spondylosis with radiculopathy, cervical region (principal); M50.10 Cervical disc disorder with radiculopathy, unspecified cervical region
CPT/HCPCS: 72050

== ENCOUNTER 2024-08-01 08:08 | Outpatient (CLI) | payer MEDICARE, OTHER, SELFPAY ==
[2024-08-01] VITALS (10 sets, daily range): BP systolic 105–151; BP diastolic 58–86; PULSE 69–79; RESP 16–20; TEMP 36.4; O2SAT 97–100
[2024-08-01] MEDS: MIDAZOLAM 2 MG/2 ML VIAL IV (09:55)
[2024-08-01] MEDS: DEXAMETHASONE 10 MG/ML VIAL 20 MG INJ (10:00)
[2024-08-01] MEDS: iopamidoL 15 ML VIAL 3 ML INJ (10:00)
[2024-08-01] MEDS: BUPIVACAINE 0.25% (PF) VIAL 2 ML INJ (10:00)
--- NOTE | 2024-08-01 10:22 | P.PCN_ITS ---
Date/Time/Diagnoses Date of procedure: 08/01/24 Time of procedure: 10:23 Pre-procedure diagnosis: 1. CERVICAL STENOSIS, 2. CERVICAL HNP WITH UPPER EXTREMITY RADICULAR FEATURES Post-procedure diagnosis: same Procedure Notes Procedure: 1. FLUORSCOPICALLY GUIDED CONTRAST CONTROLLED INTERLAMINAR EPIDURAL STEROID INJECTION - C6/7 TL BRYAN Indications: Dina is referred by Dr. Berrios for treatment of Cervical HNP with Upper Extremity Paresthesias. Physician: Marc Flores Total Fluoroscopy time (seconds): 57 Total sedation minutes: 23 Complications: none Procedure in detail & Post-procedure care: FINDINGS Cervical Stenosis due to disc deterioration and nerve root irritation and nerve root irritation DESCRIPTION OF PROCEDURE Fluoroscopically guided, contrast-controlled C6/7 translaminar epidural steroid injection with conscious sedation. Following review of allergy and review of potential side effects and complications, including, but not necessarily limited to, infection, allergic reaction, local tissue breakdown, temporary as well as permanent nerve injury, stroke, paralysis, and possible , the patient indicated that patient understood and agreed to proceed. An informed consent document was signed by the patient, witnessed by a nurse, and placed in the patient's chart. Additionally, other treatment options including modalities, medications, and physical therapy were reviewed with the patient. After review of previous anaesthesic history and IV conscious sedation the patient was deemed safe to proceed with today?s procedure with IV conscious sed ation as ASA class II designation. Safety time-out was performed to confirm patient ID, procedure to be performed and site of procedure. IV sedation was accomplished with a combination of 2mg of Versed administered by the RN after DO order, titrated to patient comfort during the course of the procedure while the patient remained responsive to all verbal commands. In the prone position, following sterile prep and drape of the cervical region, the C6/7 translaminar space was identified fluoroscopically. The skin was anesthetized via a 25-gauge 1.5-inch needle with 1% lidocaine solution. At this point, a 25-gauge, 2.5-inch short bevel spinal needle was atraumatically introduced and advanced under fluoroscopic guidance into epidural space at the C6/7 translaminar space. Depth was confirmed on lateral view. Radiological data, including multiple fluoroscopic views of the cervical spine, reveal a spinal needle at the C6/7 translaminar space. Lateral views then show placement of the needle in the epidural space. Subsequent views show contrast material flowing superiorly and inferiorly in the epidural space. DSA fluoroscopy with live contrast injection, once again, confirmed no vascular or intrathecal uptake. At this point, using loss of resistance technique with saline and air, the epidural space was entered. Following negative aspiration, injection of approximately 1.5 cc of Isovue-200 with live fluoroscopy in the AP view confirmed epidural flow in the epidural space without vascular or intrathecal uptake observed. Subsequently, a test dose of 1 cc of 1% lidocaine solution was injected and patient was observed for two minutes without signs or symptoms of complications, including abdominal pain, shortness of breath, bilateral upper or lower extremity weakness, nausea and vomiting, prior to steroid injection. At this point, 2cc or 20mg of dexamethasone was then injected without incident. The patient tolerated the procedure well without signs or symptoms of co mplications prior to being transferred to the recovery area for further monitoring, The patient was then transferred to the recovery area where they were observed for an appropriate period of time after the injection. The patient reported a VAS score of 7 prior to the procedure and a post-procedure VAS of 1. POST OP INSTRUCTIONS The patient was provided a Pain Log to continue to record their response to the target-specific procedure prior to follow-up visit with the referring provider. Additionally, specific post-injection care instructions and a contact number to our office were provided if concerns arise regarding possible complications associated with the procedure are suspected.
== END 2024-08-01 10:38 | disposition home or self-care (01) ==
LOC: RAD 08:11
PROVIDERS: Family Provider Family Medicine; PCP Family Medicine; Referring Provider Physical Medicine & Rehabilitation; Visit Provider Physical Medicine & Rehabilitation
DX: M48.02 Spinal stenosis, cervical region (principal); M50.123 Cervical disc disorder at C6-C7 level with radiculopathy
CPT/HCPCS: 62321; 99152; 99153; J1100; J2250; J3490

== ENCOUNTER 2024-11-21 14:01 | Outpatient (CLI) | payer MEDICARE, OTHER, SELFPAY ==
[2024-11-21] VITALS (11 sets, daily range): BP systolic 98–128; BP diastolic 52–66; PULSE 60–75; RESP 11–16; TEMP 35.7; O2SAT 97–100
[2024-11-21] MEDS: MIDAZOLAM 2 MG/2 ML VIAL IV ×2 (15:13→15:23)
[2024-11-21] MEDS: LIDOCAINE 1% 20 ML 5 ML INJ (15:19)
[2024-11-21] MEDS: BUPIVACAINE 0.5% (PF) 10 ML VIAL 5 ML INJ (15:19)
--- NOTE | 2024-11-21 15:37 | PM.PROC.IR.1 ---
Date/Time/Diagnoses Date of procedure: 11/21/24 Time of procedure: 15:37 Pre-procedure diagnosis: 1. FACET ARTHROPATHY Post-procedure diagnosis: same Procedure Notes Procedure: 1. BILATERAL- L4, L5 and S1 DIAGNOSTIC MB BLOCKS with LA Anesthetic Indications: Dina is referred by Dr. Berrios for treatment of Bilateral Axial LBP. Physician: Marc Flores Total Fluoroscopy time (seconds): 9 Total sedation minutes: 18 Complications: none Procedure in detail & Post-procedure care: DESCRIPTION OF PROCEDURE Fluoroscopically guided, contrast-controlled bilateral L4, L5 and S1 medial branch blocks with 0.5cc of 0.5% Marcaine. Following review of allergy and review of potential side effects and complications, including, but not necessarily limited to, infection, allergic reaction, local tissue breakdown, nerve injury, paralysis, stroke and possible , the patient indicated that the patient understood and agreed to proceed. An informed consent document was signed by the patient, witnessed by a nurse, and placed in the patient's chart. After review of previous anaesthesic history and IV conscious sedation the patient was deemed safe to proceed with today's procedure with IV conscious sedation as ASA class II designation. Safety time-out was performed to confirm patient ID, procedure to be performed and site of procedure. IV sedation was accomplished with a combination of 4mg of Versed was administered by the RN after DO order, titrated to patient comfort during the course of the procedure while the patient remained responsive to all verbal commands In the prone position, following sterile prep and drape of the lumbar region, the right L4, L5 and S1 anatomical location of the medial branch of the dorsal ramus was identified fluoroscopically. Subsequently an anesthetic skin wheal using 1% lidocaine solution was initiated at each of the anatomical spots. Subsequently then a 22-gauge 3.5-inch spinal needle was atraumatically introduced and advanced under fluoroscopic guidance at each of the corresponding sites at the right L4, L5 and S1 MB. After negative aspiration, 0.2cc of Isovue 200 was injected, confirming placement without vascular or intrathecal uptake. Subsequently then 0.5cc of 0.5% Marcaine solution was injected at each of the corresponding sites at the right L4, L5 and S1 medial branch locations. The identical procedure was replicated on the left. The patient tolerated the procedure well without signs or symptoms of complications prior to transfer to the recovery area continued monitoring without incident. Post-procedure, the patient was monitored initiating provocative activities to measure the amount of relief from block of the facetogenic pain. The patient reported a VAS of 7 prior to the procedure and a post-procedure VAS of 1. It has been a pleasure to assist in the diagnostic and therapeutic care of your patient. POST OP INSTRUCTIONS The patient was provided with a Pain Log to complete over the next several hours and subsequent days prior to the patient's follow up with the ordering physician. If the patient has it solutions sales consultant relief to the solution applied, then they may be a candidate for medial branch rhizotomy. The patient is aware, was provided, once again, with a Pain Log and will follow up with the referring physician for review and clinical correlation
== END 2024-11-21 16:00 | disposition home or self-care (01) ==
PROVIDERS: PCP Family Medicine; Referring Provider Physical Medicine & Rehabilitation; Visit Provider Physical Medicine & Rehabilitation
DX: M47.816 Spondylosis without myelopathy or radiculopathy, lumbar region (principal); M47.817 Spondylosis without myelopathy or radiculopathy, lumbosacral region
CPT/HCPCS: 64493; 64494; 99152; J2250

== ENCOUNTER 2025-02-01 15:03 | Outpatient (CLI) | payer MEDICARE, OTHER, SELFPAY ==
[2025-02-01] VITALS (10 sets, daily range): BP systolic 102–129; BP diastolic 53–69; PULSE 57–68; RESP 14–18; TEMP 36.6; O2SAT 98–100
[2025-02-01] MEDS: MIDAZOLAM 2 MG/2 ML VIAL IV ×2 (16:18→16:28)
[2025-02-01] MEDS: LIDOCAINE 1% (PF) 5 ML INJ (16:22)
[2025-02-01] MEDS: LIDOCAINE 2% INJ MDV 20ML 5 ML INJ (16:23)
--- NOTE | 2025-02-01 16:44 | P.PCN_ITS ---
Date/Time/Diagnoses Date of procedure: 02/01/25 Time of procedure: 16:44 Pre-procedure diagnosis: 1. FACET ARTHROPATHY Post-procedure diagnosis: same Procedure Notes Procedure: 1. BILATERAL- L4, L5 and S1 DIAGNOSTIC MB BLOCKS with SA Anesthetic Indications: Dina is referred by Dr. Berrios for treatment of Bilateral Axial LBP. Physician: Marc Flores Total Fluoroscopy time (seconds): 12 Total sedation minutes: 16 Complications: none Procedure in detail & Post-procedure care: DESCRIPTION OF PROCEDURE Fluoroscopically guided, contrast-controlled bilateral L4, L5 and S1 medial branch blocks with 0.5cc of 2% Lidocaine. Following review of allergy and review of potential side effects and complications, including, but not necessarily limited to, infection, allergic reaction, local tissue breakdown, nerve injury, paralysis, stroke and possible , the patient indicated that the patient understood and agreed to proceed. An informed consent document was signed by the patient, witnessed by a nurse, and placed in the patient's chart. After review of previous anaesthesic history and IV conscious sedation the patient was deemed safe to proceed with today's procedure with IV conscious sedation as ASA class II designation. Safety time-out was performed to confirm patient ID, procedure to be performed and site of procedure. IV sedation was accomplished with a combination of 4mg of Versed was administered by the RN after DO order, titrated to patient comfort during the course of the procedure while the patient remained responsive to all verbal commands In the prone position, following sterile prep and drape of the lumbar region, the right L4, L5 and S1 anatomical location of the medial branch of the dorsal ramus was identified fluoroscopically. Subsequently an anesthetic skin wheal using 1% lidocaine solution was initiated at each of the anatomical spots. Subsequently then a 22-gauge 3.5-inch spinal needle was atraumatically introduced and advanced under fluoroscopic guidance at each of the corresponding sites at the right L4, L5 and S1 MB. After negative aspiration, 0.2cc of Isovue 200 was injected, confirming placement without vascular or intrathecal uptake. Subsequently then 0.5cc of 2% Lidocaine solution was injected at each of the corresponding sites at the right L4, L5 and S1 medial branch locations. The identical procedure was replicated on the left. The patient tolerated the procedure well without signs or symptoms of complications prior to transfer to the recovery area continued monitoring without incident. Post-procedure, the patient was monitored initiating provocative activities to measure the amount of relief from block of the facetogenic pain. The patient reported a VAS of 7 prior to the procedure and a post-procedure VAS of 1. It has been a pleasure to assist in the diagnostic and therapeutic care of your patient. POST OP INSTRUCTIONS The patient was provided with a Pain Log to complete over the next several hours and subsequent days prior to the patient's follow up with the ordering physician. If the patient has production illustrator relief to the solution applied, then they may be a candidate for medial branch rhizotomy. The patient is aware, was provided, once again, with a Pain Log and will follow up with the referring physician for review and clinical correlation
== END 2025-02-01 16:58 | disposition home or self-care (01) ==
LOC: RAD 15:05
PROVIDERS: PCP Family Medicine; Referring Provider Family Medicine; Visit Provider Physical Medicine & Rehabilitation
DX: M47.816 Spondylosis without myelopathy or radiculopathy, lumbar region (principal); M47.817 Spondylosis without myelopathy or radiculopathy, lumbosacral region
CPT/HCPCS: 64493; 64494; 99152; J2250

== ENCOUNTER → 2025-05-08 15:27 | Outpatient (CLI) | payer MEDICARE, OTHER, SELFPAY ==
--- NOTE | 2025-05-08 15:28 | DI.MG.S_ITS ---
MM screening mammo BI: 05/08/2025. BI-RADS: 0 CLINICAL: 70-year old female for bilateral screening mammogram. Tyrer-Cuzick lifetime risk of 3.4%. No personal or first-degree family history of breast cancer. PRIOR EXAMS 12/28/2023, 11/18/2022, 11/06/2021, 11/05/2020, MAMMOGRAPHY TECHNIQUE: 2D and 3D (tomosynthesis) digital mammographic views obtained, with additional images as needed for full coverage. Current study was also evaluated with a Computer Aided Detection (CAD) system. DENSITY B. There are scattered areas of fibroglandular density. MAMMOGRAPHY FINDINGS Right: MLO only, Upper, Middle depth: Asymmetry needing additional imaging evaluation. Left: No suspicious mass, asymmetry, microcalcification, or other abnormality seen. IMPRESSION: Right (Asymmetry): MLO only, Upper, Middle depth * Incomplete - asymmetry needing additional imaging evaluation. Left * No evidence of malignancy. RECOMMENDATIONS Right: MLO only, Upper, Middle depth * Further evaluation with diagnostic mammography and diagnostic ultrasound. Ultrasound to be performed only if needed. OVERALL ASSESSMENT CATEGORY BI-RADS-0: Incomplete - Need Additional Imaging Evaluation. ELECTRONICALLY SIGNED: Josias Murcia M.D. on 05/09/2025 at 11:48:36 AM PT Interpreting Station ID: [id number]
== END ==
LOC: MAMMO 15:28
PROVIDERS: PCP Family Medicine; Referring Provider Family Medicine; Visit Provider Family Medicine
DX: Z12.31 Encounter for screening mammogram for malignant neoplasm of breast (principal)
CPT/HCPCS: 77063; 77067